=== PATIENT | male | born 1950 | race Caucasian/White ===

== ENCOUNTER 2018-04-05 01:36 | Inpatient (IN) | payer MEDICARE ==
[~2018-04-05] VITALS: Ht 172.7 cm; Wt 126.6 kg
[2018-04-05] MEDS ORDERED: FUROSEMIDE 40MG/4ML VIAL IV ONE (02:15)
[2018-04-05 02:54] LABS: CHLORIDE 78 mEq/L (98-107)
[2018-04-05 02:58] LABS: ETHANOL BLOOD < 10 mg/dL; INR 1.1; PROTHROMBIN TIME 10.8 sec (9.1-11.1)
[2018-04-05 03:24] LABS: HEMATOCRIT. 29.4 % (42.0-52.0); HEMOGLOBIN. 10.6 g/dL (14.0-18.0); MEAN CORPUSCULAR HEMOGLOBIN 31.8 pg (28.0-32.0); MEAN CORPUSCULAR VOLUME 88.3 fL (80.0-94.0); MEAN PLATELET VOLUME 8.5 fl (7.4-10.4); PLATELET 162 x1000/uL (130-400); RED BLOOD CELL COUNT 3.33 mill/uL (4.7-6.1); RED CELL DISTRIBUTION WIDTH 14.4 % (11.6-14.6)
[2018-04-05] MEDS ORDERED: METRONIDAZOLE 500 MG PREMIX 100 ML IV ONE (04:00)
[2018-04-05] MEDS ORDERED: PIPERACILLIN/TAZ 3.375G PREMIX 50 ML IV ONE (04:00)
[2018-04-05 04:38] LABS: METHADONE URINE SCREEN NEGATIVE (NEGATIVE)
[2018-04-05 04:39] LABS: *AMPHETAMINES SCREEN URINE NEGATIVE (NEGATIVE); *BARBITURATES SCREEN URINE NEGATIVE (NEGATIVE); *BENZODIAZEPINES SCREEN URINE NEGATIVE (NEGATIVE); *COCAINE SCREEN URINE NEGATIVE (NEGATIVE); CANNABINOID URINE SCREEN NEGATIVE (NEGATIVE); OPIATES URINE SCREEN NEGATIVE (NEGATIVE); PHENCYCLIDINE URINE SCREEN NEGATIVE (NEGATIVE)
[2018-04-05] MEDS ORDERED: IBUPROFEN 800MG TABLET PO ONE (05:30)
[2018-04-05 06:45] LABS: PLATELET ESTIMATE NORMAL
[2018-04-05] MEDS ORDERED: SODIUM CHLORIDE 0.9% 1,000 ML IV SCH (09:04)
[2018-04-05] MEDS ORDERED: ACETAMINOPHEN 325MG TABLET PO PRN (09:15)
[2018-04-05] MEDS ORDERED: LEVOFLOXACIN 500MG PREMIX 100 ML IV SCH (09:15)
[2018-04-05] MEDS ORDERED: IPRATROPIUM/ALBUTEROL 0.5-3(2.5)MG/3ML NEB INH PRN (09:15)
[2018-04-05] MEDS ORDERED: ONDANSETRON HCL 4MG/2ML INJ IV PRN (09:15)
[2018-04-05] MEDS ORDERED: DEXTROSE 50% WATER 50ML SYRINGE IV PRN (09:15)
[2018-04-05] MEDS ORDERED: MORPHINE SULFATE 2 MG/ML CPJ (NOT FOR IM USE) IV PRN (09:15)
[2018-04-05] MEDS ORDERED: TRAMADOL 50MG TABLET PO PRN (09:15)
[2018-04-05] MEDS ORDERED: GUAIFENESIN 200MG/10ML SUGAR FREE UDC PO PRN (09:15)
[2018-04-05] MEDS ORDERED: NITROGLYCERIN 0.4MG TABLET SL SL PRN (09:15)
[2018-04-05] MEDS ORDERED: NA PHOS,M-B/NA PHOS,DI-BA ENEMA 118ML PR PRN (09:15)
[2018-04-05] MEDS ORDERED: MAGNESIUM/ALUMINUM HYDROXIDE/SIMETHICONE 30ML UDC PO PRN (09:15)
[2018-04-05 12:24] LABS: PHOSPHORUS 2.4 mg/dL (2.5-4.9)
[2018-04-05 17:41] LABS: INR 1.1
[2018-04-05 17:55] LABS: CREATINE KINASE 312 IU/L (39-308)
[2018-04-05 17:56] LABS: CREATINE KINASE MB FRACTION 2.2 ng/mL (0.5-3.6)
[2018-04-05 18:23] VITALS: BP 180/87
[2018-04-05 18:30] VITALS: BP 180/87
[2018-04-05 20:00] VITALS: BP 161/102
[2018-04-05] MEDS ORDERED: MORPHINE SULFATE 10MG/5ML ORAL SOLN UDC PO PRN (20:15)
[2018-04-05] MEDS: AMLODIPINE 2.5MG TABLET PO SCH (20:54)
[2018-04-05] MEDS: TACROLIMUS 1MG CAPSULE PO SCH (20:54)
[2018-04-05] MEDS: FAMOTIDINE 20MG TABLET PO SCH (20:55)
[2018-04-05] MEDS: CARVEDILOL 3.125 MG TABLET PO SCH (20:55)
[2018-04-05] MEDS: BLOOD SUGAR DIAGNOSTIC STRIP TEST SCH (20:58)
[2018-04-05] MEDS: INSULIN LISPRO 100 UNITS/ML SUBCUT SCH (20:59)
[2018-04-05] MEDS ORDERED: LEVOFLOXACIN 500MG PREMIX 100 ML IV NR (21:00)
[2018-04-05] MEDS: ENOXAPARIN 40MG/0.4ML SYR SUBCUT SCH (21:13)
[2018-04-05] MEDS: ZOLPIDEM TARTRATE 5MG TABLET PO PRN (21:43)
[2018-04-05] MEDS ORDERED: CEFTRIAXONE 1 G PREMIX 50 ML IV SCH (22:00)
[2018-04-06] VITALS (9 sets, daily range): BP systolic 120–193; BP diastolic 71–103
[2018-04-06] MEDS ORDERED: SERT-112 PO (01:17)
[2018-04-06] MEDS ORDERED: MONT10TA24 PO (01:17)
[2018-04-06] MEDS ORDERED: LISI10TA5 PO (01:17)
[2018-04-06] MEDS ORDERED: AMLO10TA80 PO (01:17)
[2018-04-06] MEDS ORDERED: HYDR25TA PO (01:17)
[2018-04-06] MEDS: CLONIDINE 0.1MG TABLET PO PRN ×3 (04:17→18:40)
[2018-04-06] MEDS: BLOOD SUGAR DIAGNOSTIC STRIP TEST SCH ×4 (06:16→21:51)
[2018-04-06] MEDS: INSULIN LISPRO 100 UNITS/ML SUBCUT SCH ×4 (06:17→21:00)
[2018-04-06 08:43] LABS: CHLORIDE 76 mEq/L (98-107)
[2018-04-06] MEDS ORDERED: CEFTRIAXONE 1 G PREMIX 50 ML IV SCH ×2 (09:00→20:00)
[2018-04-06 09:01] LABS: CREATINE KINASE 188 IU/L (39-308)
[2018-04-06 09:04] LABS: CREATINE KINASE MB FRACTION 1.8 ng/mL (0.5-3.6)
[2018-04-06 09:48] LABS: HEMATOCRIT. 25.8 % (42.0-52.0); HEMOGLOBIN. 9.4 g/dL (14.0-18.0); MEAN CORPUSCULAR VOLUME 87.9 fL (80.0-94.0); MEAN PLATELET VOLUME 8.5 fl (7.4-10.4); PLATELET 148 x1000/uL (130-400); RED BLOOD CELL COUNT 2.94 mill/uL (4.7-6.1); RED CELL DISTRIBUTION WIDTH 14.5 % (11.6-14.6)
[2018-04-06] MEDS: CARVEDILOL 3.125 MG TABLET PO SCH (10:14)
[2018-04-06] MEDS: TACROLIMUS 1MG CAPSULE PO SCH ×2 (10:14→21:02)
[2018-04-06] MEDS: AMLODIPINE 2.5MG TABLET PO SCH (10:17)
[2018-04-06] MEDS ORDERED: MAGNESIUM 2 G PREMIX 50 ML IV SCH (11:30)
[2018-04-06] MEDS ORDERED: SODIUM CHLORIDE 3% 200 ML IV ONE (11:30)
[2018-04-06 13:36] LABS: PLATELET ESTIMATE NORMAL
[2018-04-06] MEDS: HYDRALAZINE HCL 50MG TABLET PO SCH ×2 (14:49→21:48)
[2018-04-06 20:35] LABS: CLARITY URINE CLEAR (CLEAR); COLOR URINE YELLOW (YELLOW); KETONES URINE NEGATIVE (NEGATIVE); LEUKOCYTE ESTERASE URINE NEGATIVE (NEGATIVE); NITRITE URINE NEGATIVE (NEGATIVE); OCCULT BLOOD URINE 1+ (NEGATIVE); PH URINE 5.5 (4.5-8.0); PROTEIN URINE 3+ (NEGATIVE); SPECIFIC GRAVITY URINE 1.012 (1.005-1.030); UROBILINOGEN URINE 0.2 E.U./dL (0.2-1.0)
[2018-04-06] MEDS ORDERED: HYDRALAZINE HCL 50MG TABLET PO SCH (21:00)
[2018-04-06] MEDS ORDERED: LEVOFLOXACIN 250MG PREMIX 50 ML IV SCH (21:00)
[2018-04-06] MEDS: FUROSEMIDE 20MG/2ML VIAL IVP SCH (21:02)
[2018-04-06] MEDS: FAMOTIDINE 20MG TABLET PO SCH (21:02)
[2018-04-06] MEDS: AMLODIPINE 5MG TABLET PO SCH (21:03)
[2018-04-06] MEDS: CARVEDILOL 6.25 MG TABLET PO SCH (21:03)
[2018-04-06] MEDS: ENOXAPARIN 40MG/0.4ML SYR SUBCUT SCH (21:04)
[2018-04-06] MEDS: ZOLPIDEM TARTRATE 5MG TABLET PO PRN (22:09)
[2018-04-07] VITALS: BP 137/77
[2018-04-07 05:20] VITALS: BP 179/87
[2018-04-07] MEDS: HYDRALAZINE HCL 50MG TABLET PO SCH ×2 (05:30→14:00)
[2018-04-07] MEDS: INSULIN LISPRO 100 UNITS/ML SUBCUT SCH ×2 (06:26→12:40)
[2018-04-07] MEDS: BLOOD SUGAR DIAGNOSTIC STRIP TEST SCH ×2 (06:26→11:55)
[2018-04-07 08:04] VITALS: BP 135/71
[2018-04-07] MEDS: AMLODIPINE 5MG TABLET PO SCH (09:11)
[2018-04-07] MEDS: FUROSEMIDE 20MG/2ML VIAL IVP SCH (09:12)
[2018-04-07] MEDS: CARVEDILOL 6.25 MG TABLET PO SCH (09:12)
[2018-04-07] MEDS: TACROLIMUS 1MG CAPSULE PO SCH (09:12)
[2018-04-07 12:00] VITALS: BP 146/86
[2018-04-07 13:31] LABS: HEMATOCRIT. 26.6 % (42.0-52.0); HEMOGLOBIN. 9.6 g/dL (14.0-18.0); MEAN CORPUSCULAR HEMOGLOBIN 31.9 pg (28.0-32.0); MEAN CORPUSCULAR VOLUME 88.8 fL (80.0-94.0); MEAN PLATELET VOLUME 8.2 fl (7.4-10.4); PLATELET 174 x1000/uL (130-400); RED CELL DISTRIBUTION WIDTH 14.4 % (11.6-14.6)
[2018-04-07 13:35] LABS: CHLORIDE 80 mEq/L (98-107)
[2018-04-07 13:45] LABS: PHOSPHORUS 4.5 mg/dL (2.5-4.9); TOTAL IRON BINDING CAPACITY 125 ug/dL (250-450)
[2018-04-07 14:07] LABS: VITAMIN B12 SERUM 1591 pg/mL (211-911)
[2018-04-07 14:18] LABS: PLATELET ESTIMATE NORMAL
[2018-04-07] MEDS ORDERED: SODIUM CHLORIDE 3% 500ML IV SOLN IV ONE (14:30)
[2018-04-07] MEDS ORDERED: POTASSIUM CHLORIDE 20MEQ TABLET SR PO NR (14:30)
[2018-04-07] MEDS ORDERED: SODIUM CHLORIDE 3% 300 ML IV NR (15:30)
[2018-04-07] MEDS ORDERED: SODIUM CHLORIDE 0.9% 300 ML IV NR (15:30)
[2018-04-07 15:41] VITALS: BP 146/56
[2018-04-07 16:00] VITALS: BP 159/86
== END 2018-04-07 18:35 | disposition short-term general hospital (02) | DRG 682 ==
LOC: ER 01:36 → EDBEDREQTM 04:00 → EDBEDREQ 04:00 → SUPCPDRO 09:19 → ENRESERV 16:31 → 8WST 19:21
PROVIDERS: ADMIT Internal Medicine; ATTEND Internal Medicine
DX: N17.0 Acute kidney failure with tubular necrosis (principal); J96.00 Acute respiratory failure, unspecified whether with hypoxia or hypercapnia; E43 Unspecified severe protein-calorie malnutrition; I50.33 Acute on chronic diastolic (congestive) heart failure; E87.1 Hypo-osmolality and hyponatremia; Z94.4 Liver transplant status; I42.9 Cardiomyopathy, unspecified; Z68.41 Body mass index [BMI] 40.0-44.9, adult; T86.42 Liver transplant failure; E83.51 Hypocalcemia; E66.9 Obesity, unspecified; E83.42 Hypomagnesemia; I11.0 Hypertensive heart disease with heart failure; D64.9 Anemia, unspecified; R79.1 Abnormal coagulation profile; D72.829 Elevated white blood cell count, unspecified; Y83.0 Surgical operation with transplant of whole organ as the cause of abnormal reaction of the patient, or of later complication, without mention of misadventure at the time of the procedure; Y92.89 Other specified places as the place of occurrence of the external cause
CPT/HCPCS: 36415; 71045; 74176; 80048; 80197; 80305; 82140; 82550; 82553; 82570; 82607; 82962; 83036; 83540; 83550; 83605; 83735; 83880; 83935; 84100; 84156; 84300; 84439; 84443; 84484; 85044; 85379; 93005; 93306; 93970; 96365; 96366; 96367; 96375; 97116; 97162; 97166; 99291; A6261; G0482; J0696; J1650; J1940; J1956; J2543; J3475; J3490; J7040; J7507; J7620

== ENCOUNTER 2019-03-29 09:50 | Inpatient (IN) | payer MEDICARE, MEDICAID ==
[~2019-03-29] VITALS: Ht 172.7 cm; Wt 109.8 kg
[~2019-03-29 09:50] MED LIST: AMLO10TA80 PO; HYDR25TA PO; LISI10TA5 PO; MONT10TA24 PO; SERT-112 PO
[2019-03-29 10:31] LABS: BG BASE EXCESS 0.2 mmol/L (-2.0-2.0); BG CARBOXYHEMOGLOBIN 3.6 % (0.5-1.5); BG DEOXYHEMOGLOBIN 5.9 % (0.0-5.0); BG FRACTION INSPIRED OXYGEN 21; BG HCO3 ACT 23.6 mmol/L (22.0-26.0); BG METHEMOGLOBIN 0.1 % (0.0-1.5); BG OXYGEN SATURATION 93.9 % (92.0-98.5); BG OXYHEMOGLOBIN 90.4 % (94.0-97.0); BG PCO2 33.8 mmHg (35.0-45.0); BG PH 7.462 (7.350-7.450); BG SAMPLE SITE RIGHT RADIAL; BG TOTAL HEMOGLOBIN 10.1 g/dL (12.0-18.0); BG VENT MODE ROOM AIR
[2019-03-29 10:36] LABS: BASOPHILS % 0.9 % (0.0-2.0); EOSINOPHILS % 0.4 % (0.0-5.0); HEMATOCRIT. 26.5 % (42.0-52.0); HEMOGLOBIN. 9.6 g/dL (14.0-18.0); LYMPHOCYTES % 16.7 % (20.0-50.0); MEAN CORPUSCULAR HEMOGLOBIN 31.6 pg (28.0-32.0); MEAN CORPUSCULAR VOLUME 87.6 fL (80.0-94.0); MONOCYTES % 9.4 % (2.0-8.0); NEUTROPHILS % 72.6 % (40.0-76.0); PLATELET 125 x1000/uL (130-400); RED BLOOD CELL COUNT 3.03 mill/uL (4.7-6.1); RED CELL DISTRIBUTION WIDTH 16.2 % (11.6-14.6)
[2019-03-29 10:41] LABS: CHLORIDE 82 mEq/L (98-107)
[2019-03-29] MEDS ORDERED: IBUPROFEN 600MG TABLET PO ONE (11:30)
[2019-03-29] MEDS ORDERED: HYDRALAZINE 20MG/ML VIAL IV ONE ×2 (12:30→13:15)
[2019-03-29] MEDS ORDERED: LORAZEPAM 1MG TABLET PO ONE (12:45)
[2019-03-29] MEDS ORDERED: ONDANSETRON HCL 4MG/2ML INJ IV PRN (13:30)
[2019-03-29] MEDS ORDERED: MAGNESIUM/ALUMINUM HYDROXIDE/SIMETHICONE 30ML UDC PO PRN (13:30)
[2019-03-29 15:10] LABS: PHOSPHORUS 5.1 mg/dL (2.5-4.9)
[2019-03-29 15:13] LABS: CREATINE KINASE MB FRACTION 2.1 ng/mL (0.5-3.6)
[2019-03-29] MEDS ORDERED: LORAZEPAM 2MG/ML CPJ IV NR (16:35)
[2019-03-29 18:00] VITALS: BP 183/90
[2019-03-29] MEDS ORDERED: FUROSEMIDE 100MG/10ML VIAL IVP NR (18:11)
[2019-03-29 20:00] VITALS: BP 192/95
[2019-03-29 20:55] VITALS: BP 192/95
[2019-03-29] MEDS ORDERED: HYDR50TA55 MT (22:26)
[2019-03-29] MEDS ORDERED: LORA0.5T2 MT (22:26)
[2019-03-29] MEDS ORDERED: DILT300C52 MT (22:26)
[2019-03-29] MEDS ORDERED: APIX2.5T MT (22:26)
[2019-03-29] MEDS ORDERED: BENZ100C86 MT (22:26)
[2019-03-29] MEDS ORDERED: CARV6.2548 MT (22:26)
[2019-03-29] MEDS ORDERED: METO-293 MT (22:26)
[2019-03-29] MEDS ORDERED: TACR0.5C4 MT (22:26)
[2019-03-29 23:25] LABS: CREATINE KINASE MB FRACTION 1.4 ng/mL (0.5-3.6)
[2019-03-29] MEDS: LORAZEPAM 0.5MG TABLET PO PRN (23:36)
[2019-03-30] VITALS (9 sets, daily range): BP systolic 175–210; BP diastolic 83–107
[2019-03-30] MEDS: HYDRALAZINE 20MG/ML VIAL IV PRN ×2 (00:06→12:12)
[2019-03-30] MEDS: IPRATROPIUM/ALBUTEROL 0.5-3(2.5)MG/3ML NEB HHN PRN (02:50)
[2019-03-30] MEDS: ACETAMINOPHEN 325MG TABLET PO PRN ×3 (03:15→21:11)
[2019-03-30] MEDS: CLONIDINE 0.1MG TABLET PO PRN ×3 (04:56→21:10)
[2019-03-30] MEDS: NICOTINE 21MG PATCH TD SCH (08:47)
[2019-03-30] MEDS: TACROLIMUS 1MG CAPSULE PO SCH (09:16)
[2019-03-30 12:04] LABS: BASOPHILS % 0.4 % (0.0-2.0); EOSINOPHILS % 0.1 % (0.0-5.0); HEMATOCRIT. 25.4 % (42.0-52.0); LYMPHOCYTES % 13.5 % (20.0-50.0); MEAN CORPUSCULAR HEMOGLOBIN 31.5 pg (28.0-32.0); MEAN CORPUSCULAR VOLUME 89.3 fL (80.0-94.0); MEAN PLATELET VOLUME 7.5 fl (7.4-10.4); MONOCYTES % 13.3 % (2.0-8.0); NEUTROPHILS % 72.7 % (40.0-76.0); PLATELET 122 x1000/uL (130-400); RED BLOOD CELL COUNT 2.84 mill/uL (4.7-6.1); RED CELL DISTRIBUTION WIDTH 16.2 % (11.6-14.6)
[2019-03-30 12:19] LABS: CHLORIDE 95 mEq/L (98-107)
[2019-03-30 12:29] LABS: PHOSPHORUS 4.6 mg/dL (2.5-4.9)
[2019-03-30 12:30] LABS: LDL CHOLESTEROL 60 mg/dL (5-100)
[2019-03-30 12:32] LABS: HDL CHOLESTEROL 71 mg/dL (40-59)
[2019-03-30] MEDS: NIFEDIPINE XL 30MG TAB PO SCH ×2 (13:15→21:09)
[2019-03-30] MEDS: LORAZEPAM 2MG/ML CPJ IV PRN (13:37)
[2019-03-30] MEDS ORDERED: CLONIDINE 0.2MG TABLET PO SCH (16:00)
[2019-03-30] MEDS ORDERED: TACROLIMUS 0.5 MG CAPSULE PO SCH (21:00)
[2019-03-30] MEDS: LORAZEPAM 0.5MG TABLET PO PRN (21:31)
[2019-03-31] MEDS: IPRATROPIUM/ALBUTEROL 0.5-3(2.5)MG/3ML NEB HHN PRN (01:22)
[2019-03-31 02:51] VITALS: BP 144/79
[2019-03-31] MEDS: LORAZEPAM 2MG/ML CPJ IV PRN (02:52)
[2019-03-31] MEDS: CLONIDINE 0.1MG TABLET PO PRN (04:47)
[2019-03-31 06:52] LABS: BASOPHILS % 0.7 % (0.0-2.0); EOSINOPHILS % 1.1 % (0.0-5.0); LYMPHOCYTES % 19.4 % (20.0-50.0); MEAN CORPUSCULAR HEMOGLOBIN 31.5 pg (28.0-32.0); MEAN PLATELET VOLUME 7.7 fl (7.4-10.4); MONOCYTES % 14.4 % (2.0-8.0); NEUTROPHILS % 64.4 % (40.0-76.0); PLATELET 86 x1000/uL (130-400); RED BLOOD CELL COUNT 2.21 mill/uL (4.7-6.1); RED CELL DISTRIBUTION WIDTH 16.4 % (11.6-14.6)
[2019-03-31 08:00] VITALS: BP 169/85
[2019-03-31 08:06] LABS: HEMATOCRIT. 19.9 % (42.0-52.0)
[2019-03-31] MEDS: NICOTINE 21MG PATCH TD SCH (09:03)
[2019-03-31] MEDS: NIFEDIPINE XL 30MG TAB PO SCH (09:03)
[2019-03-31] MEDS: TACROLIMUS 1MG CAPSULE PO SCH (09:12)
== END 2019-03-31 11:20 | disposition left against medical advice (07) | DRG 981 ==
LOC: ER 09:50 → 6WST 13:16 → EDBEDREQ 13:23 → ENRESERV 16:43
PROVIDERS: ADMIT Internal Medicine; ATTEND Internal Medicine
PROC: 0KBS0ZZ Excision of Right Lower Leg Muscle, Open Approach (ICD-10-PCS; principal; 2019-03-29)
PROC: 5A1D70Z Performance of Urinary Filtration, Intermittent, Less than 6 Hours Per Day (ICD-10-PCS; 2019-03-29)
DX: I16.1 Hypertensive emergency (principal); J96.90 Respiratory failure, unspecified, unspecified whether with hypoxia or hypercapnia; N18.6 End stage renal disease; E87.1 Hypo-osmolality and hyponatremia; Z94.4 Liver transplant status; E46 Unspecified protein-calorie malnutrition; L97.919 Non-pressure chronic ulcer of unspecified part of right lower leg with unspecified severity; I12.0 Hypertensive chronic kidney disease with stage 5 chronic kidney disease or end stage renal disease; D63.8 Anemia in other chronic diseases classified elsewhere; D69.6 Thrombocytopenia, unspecified; E66.01 Morbid (severe) obesity due to excess calories; Z53.29 Procedure and treatment not carried out because of patient's decision for other reasons; E83.39 Other disorders of phosphorus metabolism; E83.51 Hypocalcemia; F17.200 Nicotine dependence, unspecified, uncomplicated; F41.9 Anxiety disorder, unspecified; F10.10 Alcohol abuse, uncomplicated; K74.60 Unspecified cirrhosis of liver; W18.30XA Fall on same level, unspecified, initial encounter; Y93.89 Activity, other specified; Y92.89 Other specified places as the place of occurrence of the external cause; Y99.8 Other external cause status; Z71.6 Tobacco abuse counseling; Z82.49 Family history of ischemic heart disease and other diseases of the circulatory system; Z99.2 Dependence on renal dialysis; Z68.36 Body mass index [BMI] 36.0-36.9, adult; Z79.899 Other long term (current) drug therapy
CPT/HCPCS: 36415; 36600; 71045; 80048; 80061; 82375; 82550; 82553; 82805; 83735; 83880; 84100; 84484; 93005; 93971; 94640; 99291; J0360; J1940; J2060; J7507; J7620

== ENCOUNTER 2019-04-13 02:10 | Inpatient (IN) | payer MEDICARE, OTHER ==
[~2019-04-13] VITALS: Ht 177.8 cm; Wt 50.8 kg
[~2019-04-13 02:10] MED LIST changes: -AMLO10TA80 PO; +APIX2.5T MT; +BENZ100C86 MT; +CARV6.2548 MT; +DILT300C52 MT; -HYDR25TA PO; +HYDR50TA55 MT; -LISI10TA5 PO; +LORA0.5T2 MT; +METO-293 MT; -MONT10TA24 PO; -SERT-112 PO; +TACR0.5C4 MT
[2019-04-13] MEDS ORDERED: FUROSEMIDE 40MG/4ML VIAL IV ONE (02:30)
[2019-04-13 02:48] LABS: BASOPHILS % 0.9 % (0.0-2.0); EOSINOPHILS % 2.3 % (0.0-5.0); HEMATOCRIT. 25.5 % (42.0-52.0); LYMPHOCYTES % 15.2 % (20.0-50.0); MEAN CORPUSCULAR HEMOGLOBIN 31.1 pg (28.0-32.0); MEAN CORPUSCULAR VOLUME 88.3 fL (80.0-94.0); NEUTROPHILS % 72.6 % (40.0-76.0); PLATELET 157 x1000/uL (130-400); RED BLOOD CELL COUNT 2.89 mill/uL (4.7-6.1); RED CELL DISTRIBUTION WIDTH 15.7 % (11.6-14.6)
[2019-04-13 02:53] LABS: CHLORIDE 87 mEq/L (98-107)
[2019-04-13] MEDS ORDERED: ONDANSETRON HCL 4MG/2ML INJ IV ONE (03:00)
[2019-04-13] MEDS ORDERED: FUROSEMIDE 40MG/4ML VIAL IVP SCH ×2 (03:00→07:30)
[2019-04-13] MEDS ORDERED: LABETALOL 5MG/ML SYR 20 MG/4 ML SYRINGE IV ONE (05:00)
[2019-04-13] MEDS ORDERED: NITROGLYCERIN 0.4MG TABLET SL SL PRN (06:00)
[2019-04-13] MEDS ORDERED: TRAMADOL 50MG TABLET PO PRN (06:00)
[2019-04-13] MEDS ORDERED: ENOXAPARIN 40MG/0.4ML SYR SUBCUT SCH (06:00)
[2019-04-13] MEDS ORDERED: DOCUSATE SODIUM 100MG CAPSULE PO PRN (06:00)
[2019-04-13] MEDS ORDERED: DIPHENHYDRAMINE 50MG/ML VIAL IV PRN (06:00)
[2019-04-13] MEDS ORDERED: GUAIFENESIN 200MG/10ML SUGAR FREE UDC PO PRN (06:00)
[2019-04-13] MEDS ORDERED: MAGNESIUM/ALUMINUM HYDROXIDE/SIMETHICONE 30ML UDC PO PRN (06:00)
[2019-04-13] MEDS ORDERED: CLONIDINE 0.1MG TABLET PO PRN (06:00)
[2019-04-13] MEDS ORDERED: IPRATROPIUM/ALBUTEROL 0.5-3(2.5)MG/3ML NEB NEB PRN (06:00)
[2019-04-13] MEDS ORDERED: ACETAMINOPHEN 325MG TABLET PO PRN (06:00)
[2019-04-13] MEDS ORDERED: ONDANSETRON HCL 4MG/2ML INJ IV PRN (06:00)
[2019-04-13] MEDS ORDERED: CARVEDILOL 3.125 MG TABLET PO SCH (07:30)
[2019-04-13 07:47] LABS: FOLIC ACID (FOLATE) SERUM > 20.00 ng/mL (>5.38)
[2019-04-13 07:53] LABS: VITAMIN B12 SERUM 920 pg/mL (211-911)
[2019-04-13 08:00] VITALS: BP 182/80
[2019-04-13 08:17] VITALS: BP 211/109
[2019-04-13] MEDS: HYDRALAZINE HCL 50MG TABLET PO SCH ×3 (08:18→22:06)
[2019-04-13] MEDS: APIXABAN 2.5 MG TABLET PO SCH ×2 (08:18→17:47)
[2019-04-13] MEDS: SEVELAMER CARBONATE 800 MG TABLET PO SCH ×3 (08:19→17:48)
[2019-04-13] MEDS: DILTIAZEM HCL 60MG TABLET PO SCH ×3 (08:19→17:58)
[2019-04-13] MEDS: FOLIC ACID/VITAMIN B COMP W-C TABLET PO SCH (08:19)
[2019-04-13] MEDS: ASPIRIN 325MG EC TABLET PO SCH (08:20)
[2019-04-13] MEDS: FAMOTIDINE 20MG TABLET PO SCH (08:20)
[2019-04-13] MEDS ORDERED: LISINOPRIL 20MG TABLET PO SCH (09:00)
[2019-04-13] MEDS ORDERED: FUROSEMIDE 40MG/4ML VIAL IVP NR (10:00)
[2019-04-13] MEDS: TACROLIMUS 0.5 MG CAPSULE PO SCH ×2 (10:02→22:04)
[2019-04-13] MEDS: MINOXIDIL 2.5MG TABLET PO SCH ×2 (10:03→22:04)
[2019-04-13 10:54] LABS: LDL CHOLESTEROL 78 mg/dL (5-100); TOTAL IRON BINDING CAPACITY 220 ug/dL (250-450)
[2019-04-13 10:55] LABS: CREATINE KINASE 29 IU/L (39-308)
[2019-04-13 10:56] LABS: HDL CHOLESTEROL 46 mg/dL (40-59)
[2019-04-13 10:59] LABS: CREATINE KINASE MB FRACTION < 1.0 ng/mL (0.5-3.6)
[2019-04-13 12:00] VITALS: BP 177/82
[2019-04-13 16:00] VITALS: BP 138/64
[2019-04-13 17:52] LABS: CREATINE KINASE 31 IU/L (39-308)
[2019-04-13 17:53] LABS: CREATINE KINASE MB FRACTION < 1.0 ng/mL (0.5-3.6)
[2019-04-13 20:00] VITALS: BP 146/70
[2019-04-13] MEDS ORDERED: MINOXIDIL 2.5MG TABLET PO SCH (21:00)
[2019-04-13] MEDS: CARVEDILOL 12.5MG TABLET PO SCH (22:03)
[2019-04-13] MEDS: EPOETIN ALFA 10000UNITS/ML VIAL SUBCUT SCH (22:05)
[2019-04-13] MEDS: CLONIDINE 0.1MG TABLET PO SCH (22:06)
[2019-04-13] MEDS: LORAZEPAM 0.5MG TABLET PO PRN (22:32)
[2019-04-13] MEDS: ZOLPIDEM TARTRATE 5MG TABLET PO PRN (22:32)
[2019-04-13 22:57] VITALS: BP 188/94
[2019-04-14 00:42] VITALS: BP 134/64
[2019-04-14] MEDS: DILTIAZEM HCL 60MG TABLET PO SCH ×5 (01:26→23:55)
[2019-04-14 04:00] VITALS: BP 158/56
[2019-04-14] MEDS: HYDRALAZINE HCL 50MG TABLET PO SCH (05:54)
[2019-04-14] MEDS: APIXABAN 2.5 MG TABLET PO SCH ×2 (05:55→21:10)
[2019-04-14] MEDS: CLONIDINE 0.1MG TABLET PO SCH ×3 (05:55→22:26)
[2019-04-14 07:21] LABS: BASOPHILS % 1.1 % (0.0-2.0); EOSINOPHILS % 1.8 % (0.0-5.0); HEMATOCRIT. 23.6 % (42.0-52.0); HEMOGLOBIN. 8.2 g/dL (14.0-18.0); LYMPHOCYTES % 18.1 % (20.0-50.0); MEAN CORPUSCULAR HEMOGLOBIN 31.2 pg (28.0-32.0); MEAN CORPUSCULAR VOLUME 90.4 fL (80.0-94.0); MEAN PLATELET VOLUME 8.5 fl (7.4-10.4); MONOCYTES % 13.3 % (2.0-8.0); NEUTROPHILS % 65.7 % (40.0-76.0); PLATELET 147 x1000/uL (130-400); RED BLOOD CELL COUNT 2.61 mill/uL (4.7-6.1); RED CELL DISTRIBUTION WIDTH 15.9 % (11.6-14.6)
[2019-04-14 08:00] VITALS: BP 87/45
[2019-04-14 08:23] LABS: PHOSPHORUS 4.2 mg/dL (2.5-4.9)
[2019-04-14] MEDS: LOSARTAN POTASSIUM 25 MG TABLET PO SCH (09:00)
[2019-04-14] MEDS: CARVEDILOL 12.5MG TABLET PO SCH ×2 (09:00→21:10)
[2019-04-14] MEDS: FUROSEMIDE 100MG/10ML VIAL IVP SCH (10:07)
[2019-04-14] MEDS: ASPIRIN 325MG EC TABLET PO SCH (10:08)
[2019-04-14] MEDS: FOLIC ACID/VITAMIN B COMP W-C TABLET PO SCH (10:08)
[2019-04-14] MEDS: TACROLIMUS 0.5 MG CAPSULE PO SCH ×2 (10:08→21:09)
[2019-04-14] MEDS: SEVELAMER CARBONATE 800 MG TABLET PO SCH ×3 (10:08→21:09)
[2019-04-14] MEDS: MINOXIDIL 2.5MG TABLET PO SCH ×2 (10:09→21:10)
[2019-04-14] MEDS: FAMOTIDINE 20MG TABLET PO SCH (10:18)
[2019-04-14 12:00] VITALS: BP 122/69
[2019-04-14] MEDS: LORAZEPAM 0.5MG TABLET PO PRN ×2 (12:30→23:55)
[2019-04-14 16:00] VITALS: BP 133/71
[2019-04-14 20:00] VITALS: BP 129/68
[2019-04-14] MEDS: ZOLPIDEM TARTRATE 5MG TABLET PO PRN (22:25)
[2019-04-15] VITALS: BP 157/73
[2019-04-15 04:00] VITALS: BP 141/71
[2019-04-15] MEDS: CLONIDINE 0.1MG TABLET PO SCH ×3 (05:37→21:19)
[2019-04-15] MEDS: APIXABAN 2.5 MG TABLET PO SCH ×2 (05:37→18:31)
[2019-04-15] MEDS: DILTIAZEM HCL 60MG TABLET PO SCH ×4 (05:38→18:33)
[2019-04-15 07:08] LABS: BASOPHILS % 1.2 % (0.0-2.0); EOSINOPHILS % 2.6 % (0.0-5.0); HEMATOCRIT. 21.9 % (42.0-52.0); HEMOGLOBIN. 7.6 g/dL (14.0-18.0); LYMPHOCYTES % 24.9 % (20.0-50.0); MEAN CORPUSCULAR HEMOGLOBIN 31.4 pg (28.0-32.0); MEAN PLATELET VOLUME 8.6 fl (7.4-10.4); MONOCYTES % 14.2 % (2.0-8.0); NEUTROPHILS % 57.1 % (40.0-76.0); PLATELET 117 x1000/uL (130-400); RED BLOOD CELL COUNT 2.41 mill/uL (4.7-6.1); RED CELL DISTRIBUTION WIDTH 15.8 % (11.6-14.6)
[2019-04-15 07:09] LABS: PHOSPHORUS 3.2 mg/dL (2.5-4.9)
[2019-04-15 08:00] VITALS: BP 139/73
[2019-04-15] MEDS: TACROLIMUS 0.5 MG CAPSULE PO SCH ×2 (09:19→21:19)
[2019-04-15] MEDS: LOSARTAN POTASSIUM 25 MG TABLET PO SCH (09:19)
[2019-04-15] MEDS: FOLIC ACID/VITAMIN B COMP W-C TABLET PO SCH (09:19)
[2019-04-15] MEDS: SEVELAMER CARBONATE 800 MG TABLET PO SCH ×4 (09:19→18:32)
[2019-04-15] MEDS: FAMOTIDINE 20MG TABLET PO SCH (09:19)
[2019-04-15] MEDS: FUROSEMIDE 100MG/10ML VIAL IVP SCH (09:19)
[2019-04-15] MEDS: CARVEDILOL 12.5MG TABLET PO SCH ×2 (09:20→21:19)
[2019-04-15] MEDS: MINOXIDIL 2.5MG TABLET PO SCH ×2 (09:20→21:18)
[2019-04-15] MEDS: ASPIRIN 325MG EC TABLET PO SCH (09:20)
[2019-04-15 12:00] VITALS: BP 127/71
[2019-04-15 16:00] VITALS: BP 150/68
[2019-04-15] MEDS: LORAZEPAM 0.5MG TABLET PO PRN (18:31)
[2019-04-15 20:00] VITALS: BP_SYST 157; BP_SYST 169; BP_DIAS 58; BP_DIAS 77
[2019-04-15] MEDS: ZOLPIDEM TARTRATE 5MG TABLET PO PRN (21:18)
[2019-04-15] MEDS: EPOETIN ALFA 10000UNITS/ML VIAL SUBCUT SCH (21:21)
[2019-04-16] VITALS: BP 141/66
[2019-04-16] MEDS: DILTIAZEM HCL 60MG TABLET PO SCH ×3 (00:47→12:04)
[2019-04-16 04:00] VITALS: BP 151/80
[2019-04-16] MEDS: CLONIDINE 0.1MG TABLET PO SCH ×2 (05:29→14:01)
[2019-04-16] MEDS: APIXABAN 2.5 MG TABLET PO SCH (05:29)
[2019-04-16] MEDS: LORAZEPAM 0.5MG TABLET PO PRN (05:45)
[2019-04-16 06:38] LABS: BASOPHILS % 1.2 % (0.0-2.0); EOSINOPHILS % 3.7 % (0.0-5.0); HEMATOCRIT. 22.3 % (42.0-52.0); HEMOGLOBIN. 7.5 g/dL (14.0-18.0); LYMPHOCYTES % 21.1 % (20.0-50.0); MEAN CORPUSCULAR HEMOGLOBIN 30.9 pg (28.0-32.0); MEAN CORPUSCULAR VOLUME 91.8 fL (80.0-94.0); MEAN PLATELET VOLUME 8.4 fl (7.4-10.4); PLATELET 118 x1000/uL (130-400); RED BLOOD CELL COUNT 2.43 mill/uL (4.7-6.1); RED CELL DISTRIBUTION WIDTH 15.9 % (11.6-14.6)
[2019-04-16 07:11] LABS: PHOSPHORUS 3.2 mg/dL (2.5-4.9)
[2019-04-16 08:00] VITALS: BP 139/53
[2019-04-16] MEDS: SEVELAMER CARBONATE 800 MG TABLET PO SCH ×2 (08:15→14:01)
[2019-04-16] MEDS: TACROLIMUS 0.5 MG CAPSULE PO SCH (09:10)
[2019-04-16] MEDS: FOLIC ACID/VITAMIN B COMP W-C TABLET PO SCH (09:10)
[2019-04-16] MEDS: FUROSEMIDE 100MG/10ML VIAL IVP SCH (09:10)
[2019-04-16] MEDS: ASPIRIN 325MG EC TABLET PO SCH (09:11)
[2019-04-16] MEDS: LOSARTAN POTASSIUM 25 MG TABLET PO SCH (09:11)
[2019-04-16] MEDS: CARVEDILOL 12.5MG TABLET PO SCH (09:11)
[2019-04-16] MEDS: MINOXIDIL 2.5MG TABLET PO SCH (09:12)
[2019-04-16] MEDS: FAMOTIDINE 20MG TABLET PO SCH (09:26)
[2019-04-16 10:52] VITALS: BP 131/66
[2019-04-16 12:00] VITALS: BP 131/66
== END 2019-04-16 14:05 | disposition home or self-care (01) | DRG 166 ==
LOC: ER 02:29 → 7WST 03:30 → ENRESERV 04:34 → SUPCPDRO 05:56 → 7WST 04-14 15:39
PROVIDERS: ADMIT Internal Medicine; ATTEND Internal Medicine
PROC: 5A1D70Z Performance of Urinary Filtration, Intermittent, Less than 6 Hours Per Day (ICD-10-PCS; 2019-04-13)
PROC: 0JBN0ZZ Excision of Right Lower Leg Subcutaneous Tissue and Fascia, Open Approach (ICD-10-PCS; principal; 2019-04-14)
PROC: 5A1D70Z Performance of Urinary Filtration, Intermittent, Less than 6 Hours Per Day (ICD-10-PCS; 2019-04-14)
PROC: 5A1D70Z Performance of Urinary Filtration, Intermittent, Less than 6 Hours Per Day (ICD-10-PCS; 2019-04-16)
DX: J96.01 Acute respiratory failure with hypoxia (principal); I50.33 Acute on chronic diastolic (congestive) heart failure; N18.6 End stage renal disease; I13.2 Hypertensive heart and chronic kidney disease with heart failure and with stage 5 chronic kidney disease, or end stage renal disease; E44.0 Moderate protein-calorie malnutrition; E87.1 Hypo-osmolality and hyponatremia; L97.919 Non-pressure chronic ulcer of unspecified part of right lower leg with unspecified severity; Z94.4 Liver transplant status; Z68.1 Body mass index [BMI] 19.9 or less, adult; D63.8 Anemia in other chronic diseases classified elsewhere; E66.01 Morbid (severe) obesity due to excess calories; E83.51 Hypocalcemia; F10.10 Alcohol abuse, uncomplicated; F17.210 Nicotine dependence, cigarettes, uncomplicated; F41.9 Anxiety disorder, unspecified; I16.0 Hypertensive urgency; W18.30XA Fall on same level, unspecified, initial encounter; K74.60 Unspecified cirrhosis of liver; Z79.899 Other long term (current) drug therapy; Z99.2 Dependence on renal dialysis; Y93.89 Activity, other specified; Y92.89 Other specified places as the place of occurrence of the external cause; Y99.8 Other external cause status
CPT/HCPCS: 36415; 71045; 80048; 80061; 82550; 82553; 82607; 82746; 83036; 83540; 83550; 83735; 83880; 84100; 84484; 93005; 93970; 99291; J0885; J1200; J1940; J2405; J3490; J7507

== ENCOUNTER 2019-05-04 23:51 | Inpatient (IN) | payer MEDICARE, OTHER ==
[~2019-05-04] VITALS: Ht 177.8 cm; Wt 110.3 kg
[~2019-05-04 23:51] MED LIST changes: +CALC667T6 PO; +CARV12.545 PO; +DOXA4TAB3 MT; +FURO80TA3 PO; +HYDR100T26 MT
[2019-05-05 03:03] LABS: BASOPHILS % 1.1 % (0.0-2.0); EOSINOPHILS % 4.2 % (0.0-5.0); HEMATOCRIT. 27.8 % (42.0-52.0); HEMOGLOBIN. 9.4 g/dL (14.0-18.0); LYMPHOCYTES % 33.4 % (20.0-50.0); MEAN CORPUSCULAR HEMOGLOBIN 30.5 pg (28.0-32.0); MEAN CORPUSCULAR VOLUME 90.2 fL (80.0-94.0); MEAN PLATELET VOLUME 8.5 fl (7.4-10.4); MONOCYTES % 11.3 % (2.0-8.0); PLATELET 102 x1000/uL (130-400); RED BLOOD CELL COUNT 3.08 mill/uL (4.7-6.1); RED CELL DISTRIBUTION WIDTH 14.9 % (11.6-14.6)
[2019-05-05 03:08] LABS: CHLORIDE 92 mEq/L (98-107)
[2019-05-05] MEDS ORDERED: IPRATROPIUM/ALBUTEROL 0.5-3(2.5)MG/3ML NEB HHN PRN (07:30)
[2019-05-05] MEDS ORDERED: DIPHENHYDRAMINE 50MG/ML VIAL IV PRN (07:30)
[2019-05-05] MEDS ORDERED: ONDANSETRON HCL 4MG/2ML INJ IV PRN (07:30)
[2019-05-05 07:41] LABS: PHOSPHORUS 3.4 mg/dL (2.5-4.9)
[2019-05-05] MEDS: CLONIDINE 0.1MG TABLET PO PRN (18:21)
[2019-05-05 22:00] VITALS: BP 174/86
[2019-05-05 22:09] VITALS: BP 174/86
[2019-05-06] VITALS: BP 110/56
[2019-05-06 04:00] VITALS: BP 160/63
[2019-05-06 08:07] LABS: BASOPHILS % 0.8 % (0.0-2.0); EOSINOPHILS % 2.4 % (0.0-5.0); HEMATOCRIT. 28.8 % (42.0-52.0); HEMOGLOBIN. 9.8 g/dL (14.0-18.0); LYMPHOCYTES % 19.2 % (20.0-50.0); MEAN CORPUSCULAR HEMOGLOBIN 30.7 pg (28.0-32.0); MEAN CORPUSCULAR VOLUME 89.9 fL (80.0-94.0); MEAN PLATELET VOLUME 8.7 fl (7.4-10.4); MONOCYTES % 11.6 % (2.0-8.0); PLATELET 108 x1000/uL (130-400); RED CELL DISTRIBUTION WIDTH 14.6 % (11.6-14.6)
[2019-05-06 08:18] VITALS: BP 165/86
[2019-05-06] MEDS: CLONIDINE 0.1MG TABLET PO PRN ×2 (08:22→21:33)
[2019-05-06 09:45] LABS: CHLORIDE 100 mEq/L (98-107)
[2019-05-06 12:24] VITALS: BP 148/67
[2019-05-06 16:24] VITALS: BP 165/52
[2019-05-06] MEDS: ACETAMINOPHEN 325MG TABLET PO PRN (17:33)
[2019-05-06] MEDS: POLYVINYL ALCOHOL OPHTH DROPS 15ML BOTHEYE PRN (17:33)
[2019-05-06 20:00] VITALS: BP 164/68
[2019-05-06] MEDS ORDERED: TRAZODONE HCL 50MG TABLET PO SCH ×2 (21:00)
[2019-05-07] VITALS: BP_SYST 155; BP_SYST 176; BP_DIAS 73; BP_DIAS 82
[2019-05-07] MEDS: ACETAMINOPHEN 325MG TABLET PO PRN (00:05)
[2019-05-07] MEDS: CLONIDINE 0.1MG TABLET PO PRN (06:27)
[2019-05-07 08:30] VITALS: BP 152/71
[2019-05-07] MEDS: POLYVINYL ALCOHOL OPHTH DROPS 15ML BOTHEYE PRN (09:08)
[2019-05-07 09:09] LABS: BASOPHILS % 0.7 % (0.0-2.0); EOSINOPHILS % 2.2 % (0.0-5.0); HEMOGLOBIN. 10.1 g/dL (14.0-18.0); LYMPHOCYTES % 25.1 % (20.0-50.0); MEAN CORPUSCULAR HEMOGLOBIN 30.6 pg (28.0-32.0); MEAN CORPUSCULAR VOLUME 90.6 fL (80.0-94.0); MEAN PLATELET VOLUME 8.8 fl (7.4-10.4); PLATELET 106 x1000/uL (130-400); RED BLOOD CELL COUNT 3.31 mill/uL (4.7-6.1); RED CELL DISTRIBUTION WIDTH 14.6 % (11.6-14.6)
[2019-05-07 12:48] VITALS: BP 172/84
[2019-05-07 13:21] VITALS: BP 172/84
== END 2019-05-07 15:05 | disposition home or self-care (01) | DRG 622 ==
LOC: ER 23:51 → 6WST 05-05 02:59 → EDBEDREQTM 05-05 03:05 → EDBEDREQ 05-05 03:05 → ENRESERV 05-05 19:06
PROVIDERS: ADMIT Internal Medicine; ATTEND Internal Medicine
PROC: 5A1D70Z Performance of Urinary Filtration, Intermittent, Less than 6 Hours Per Day (ICD-10-PCS; 2019-05-05)
PROC: 5A1D70Z Performance of Urinary Filtration, Intermittent, Less than 6 Hours Per Day (ICD-10-PCS; 2019-05-06)
PROC: 0JBL0ZZ Excision of Right Upper Leg Subcutaneous Tissue and Fascia, Open Approach (ICD-10-PCS; principal; 2019-05-07)
DX: E87.70 Fluid overload, unspecified (principal); J96.00 Acute respiratory failure, unspecified whether with hypoxia or hypercapnia; N18.6 End stage renal disease; I50.33 Acute on chronic diastolic (congestive) heart failure; I13.2 Hypertensive heart and chronic kidney disease with heart failure and with stage 5 chronic kidney disease, or end stage renal disease; E46 Unspecified protein-calorie malnutrition; J84.9 Interstitial pulmonary disease, unspecified; L97.919 Non-pressure chronic ulcer of unspecified part of right lower leg with unspecified severity; Z94.4 Liver transplant status; F10.10 Alcohol abuse, uncomplicated; D69.6 Thrombocytopenia, unspecified; E66.01 Morbid (severe) obesity due to excess calories; K74.60 Unspecified cirrhosis of liver; F41.9 Anxiety disorder, unspecified; D63.8 Anemia in other chronic diseases classified elsewhere; Z99.2 Dependence on renal dialysis; Z87.891 Personal history of nicotine dependence; Z91.19 Patient's noncompliance with other medical treatment and regimen; Z68.34 Body mass index [BMI] 34.0-34.9, adult; Z79.899 Other long term (current) drug therapy
CPT/HCPCS: 36415; 71045; 80048; 80053; 83735; 84100; 84443; 84484; 85025; 93005; 93970; 94640; 99285

== ENCOUNTER 2019-05-17 22:34 | Inpatient (IN) | payer MEDICARE, OTHER ==
[~2019-05-17] VITALS: Ht 170.2 cm; Wt 98.4 kg
[2019-05-17] MEDS ORDERED: ALBUTEROL (0.083%) 2.5MG/3ML NEB HHN STA (23:25)
[2019-05-17] MEDS ORDERED: ONDANSETRON HCL 4MG/2ML INJ IV STA (23:25)
[2019-05-17] MEDS ORDERED: MORPHINE SULFATE 4 MG/ML CPJ (NOT FOR IM USE) IV STA (23:25)
[2019-05-17] MEDS ORDERED: LABETALOL 5MG/ML SYR 20 MG/4 ML SYRINGE IV NR (23:30)
[2019-05-17 23:48] LABS: BASOPHILS % 1.2 % (0.0-2.0); EOSINOPHILS % 2.8 % (0.0-5.0); HEMATOCRIT. 32.9 % (42.0-52.0); HEMOGLOBIN. 11.4 g/dL (14.0-18.0); LYMPHOCYTES % 20.8 % (20.0-50.0); MEAN CORPUSCULAR HEMOGLOBIN 30.4 pg (28.0-32.0); MEAN CORPUSCULAR VOLUME 87.8 fL (80.0-94.0); MEAN PLATELET VOLUME 8.1 fl (7.4-10.4); MONOCYTES % 10.6 % (2.0-8.0); NEUTROPHILS % 64.6 % (40.0-76.0); PLATELET 89 x1000/uL (130-400); RED BLOOD CELL COUNT 3.75 mill/uL (4.7-6.1); RED CELL DISTRIBUTION WIDTH 14.9 % (11.6-14.6)
[2019-05-17 23:52] LABS: CHLORIDE 85 mEq/L (98-107)
[2019-05-18] MEDS ORDERED: DIPHENHYDRAMINE 50MG CAPSULE PO ONE (01:45)
[2019-05-18] MEDS ORDERED: ONDANSETRON HCL 4MG/2ML INJ IV PRN (02:30)
[2019-05-18] MEDS ORDERED: HYDRALAZINE 20MG/ML VIAL IV PRN (03:00)
[2019-05-18] MEDS ORDERED: LORAZEPAM 0.5MG TABLET PO PRN (03:45)
[2019-05-18] MEDS ORDERED: CLONIDINE 0.2MG TABLET PO PRN (04:45)
[2019-05-18] MEDS: FUROSEMIDE 40MG/4ML VIAL IVP SCH ×2 (08:00→17:01)
[2019-05-18] MEDS: HYDRALAZINE 20MG/ML VIAL IV PRN (08:00)
[2019-05-18 09:30] VITALS: BP 178/93
[2019-05-18 12:00] VITALS: BP 116/86
[2019-05-18] MEDS ORDERED: APIXABAN 2.5 MG TABLET PO SCH (12:45)
[2019-05-18] MEDS ORDERED: HYDROXYZINE 25MG TABLET PO PRN (12:45)
[2019-05-18 17:04] VITALS: BP 197/90
[2019-05-18] MEDS: METOCLOPRAMIDE HCL 10MG TABLET PO SCH (17:05)
[2019-05-18] MEDS: TACROLIMUS 0.5 MG CAPSULE PO SCH (17:05)
[2019-05-18] MEDS: DILTIAZEM HCL 300MG CAPSULE SR 24HR PO SCH (17:05)
[2019-05-18] MEDS: HYDRALAZINE HCL 100MG TABLET PO SCH ×2 (17:06→17:14)
[2019-05-18] MEDS: DOXAZOSIN MESYLATE 4MG TABLET PO SCH (17:06)
[2019-05-18] MEDS: CARVEDILOL 12.5MG TABLET PO SCH ×2 (17:06→20:38)
[2019-05-18] MEDS: BENZONATATE 100MG CAPSULE PO SCH (17:09)
[2019-05-18 19:20] VITALS: BP 201/100
[2019-05-18] MEDS: LORAZEPAM 0.5MG TABLET PO PRN (22:54)
[2019-05-19] VITALS (7 sets, daily range): BP systolic 153–221; BP diastolic 76–101
[2019-05-19] MEDS: ACETAMINOPHEN 325MG TABLET PO PRN ×2 (00:17→20:32)
[2019-05-19] MEDS: HYDRALAZINE 20MG/ML VIAL IV PRN (00:18)
[2019-05-19] MEDS: FUROSEMIDE 40MG/4ML VIAL IVP SCH ×2 (06:46→18:39)
[2019-05-19] MEDS: CARVEDILOL 12.5MG TABLET PO SCH (06:46)
[2019-05-19 07:14] LABS: BASOPHILS % 0.7 % (0.0-2.0); EOSINOPHILS % 2.8 % (0.0-5.0); HEMATOCRIT. 31.9 % (42.0-52.0); HEMOGLOBIN. 10.9 g/dL (14.0-18.0); LYMPHOCYTES % 18.9 % (20.0-50.0); MEAN CORPUSCULAR HEMOGLOBIN 30.7 pg (28.0-32.0); MEAN CORPUSCULAR VOLUME 90.1 fL (80.0-94.0); MEAN PLATELET VOLUME 8.4 fl (7.4-10.4); MONOCYTES % 10.2 % (2.0-8.0); NEUTROPHILS % 67.4 % (40.0-76.0); PLATELET 81 x1000/uL (130-400); RED BLOOD CELL COUNT 3.55 mill/uL (4.7-6.1); RED CELL DISTRIBUTION WIDTH 15.1 % (11.6-14.6)
[2019-05-19 07:17] LABS: CHLORIDE 96 mEq/L (98-107)
[2019-05-19] MEDS: BENZONATATE 100MG CAPSULE PO SCH ×2 (09:28→18:39)
[2019-05-19] MEDS: HYDRALAZINE HCL 100MG TABLET PO SCH ×3 (09:28→18:39)
[2019-05-19] MEDS: DILTIAZEM HCL 300MG CAPSULE SR 24HR PO SCH (09:28)
[2019-05-19] MEDS: METOCLOPRAMIDE HCL 10MG TABLET PO SCH ×2 (09:28→18:39)
[2019-05-19] MEDS: TACROLIMUS 0.5 MG CAPSULE PO SCH ×2 (09:28→18:38)
[2019-05-19] MEDS: DOXAZOSIN MESYLATE 4MG TABLET PO SCH (09:28)
[2019-05-19] MEDS ORDERED: NEBIVOLOL HCL 5 MG TABLET PO SCH (10:30)
[2019-05-19] MEDS ORDERED: NIFEDIPINE XL 30MG TAB PO SCH (10:30)
[2019-05-19] MEDS: LORAZEPAM 0.5MG TABLET PO PRN (15:53)
[2019-05-19] MEDS ORDERED: LOSARTAN POTASSIUM 100 MG TABLET PO SCH (16:00)
[2019-05-19] MEDS ORDERED: LOSARTAN POTASSIUM 50 MG TABLET PO SCH ×2 (16:00)
[2019-05-19] MEDS: ISOSORBIDE DINITRATE 30MG TABLET PO SCH ×2 (18:39→20:32)
[2019-05-19] MEDS: CLONIDINE 0.3MG TABLET PO SCH (20:31)
[2019-05-20 00:05] VITALS: BP 107/48
[2019-05-20 04:00] VITALS: BP 155/80
[2019-05-20] MEDS: LORAZEPAM 0.5MG TABLET PO PRN (04:17)
[2019-05-20] MEDS: ISOSORBIDE DINITRATE 30MG TABLET PO SCH (05:33)
[2019-05-20] MEDS: CLONIDINE 0.3MG TABLET PO SCH (05:34)
[2019-05-20] MEDS: FUROSEMIDE 40MG/4ML VIAL IVP SCH (06:20)
[2019-05-20 07:32] LABS: BASOPHILS % 0.6 % (0.0-2.0); EOSINOPHILS % 3.2 % (0.0-5.0); HEMATOCRIT. 25.5 % (42.0-52.0); HEMOGLOBIN. 8.7 g/dL (14.0-18.0); LYMPHOCYTES % 19.6 % (20.0-50.0); MEAN CORPUSCULAR HEMOGLOBIN 30.6 pg (28.0-32.0); MEAN CORPUSCULAR VOLUME 90.1 fL (80.0-94.0); MEAN PLATELET VOLUME 8.3 fl (7.4-10.4); MONOCYTES % 12.8 % (2.0-8.0); NEUTROPHILS % 63.8 % (40.0-76.0); PLATELET 62 x1000/uL (130-400); RED BLOOD CELL COUNT 2.83 mill/uL (4.7-6.1)
[2019-05-20 07:53] LABS: PHOSPHORUS 5.6 mg/dL (2.5-4.9)
[2019-05-20 08:00] VITALS: BP 145/77
[2019-05-20] MEDS: BENZONATATE 100MG CAPSULE PO SCH (08:56)
[2019-05-20] MEDS: TACROLIMUS 0.5 MG CAPSULE PO SCH (08:56)
[2019-05-20] MEDS ORDERED: NEBIVOLOL HCL 5 MG TABLET PO SCH (09:00)
[2019-05-20] MEDS: METOCLOPRAMIDE HCL 10MG TABLET PO SCH (09:02)
[2019-05-20 12:00] VITALS: BP 138/76
[2019-05-20] MEDS ORDERED: ISOS30TA11 PO (12:42)
[2019-05-20] MEDS ORDERED: NIFE-33 PO (12:42)
[2019-05-20] MEDS ORDERED: NEBI5TAB3 PO (12:42)
[2019-05-20] MEDS ORDERED: CLON0.3T PO (12:42)
[2019-05-20] MEDS ORDERED: LOSA100T3 PO (12:42)
[2019-05-20 14:34] VITALS: BP 130/76
[2019-05-20] MEDS ORDERED: HEPARIN SODIUM 1,000 UNIT/1ML VIAL IV SCH (16:30)
== END 2019-05-20 18:24 | disposition home or self-care (01) | DRG 291 ==
LOC: ER 22:34 → 7WST 05-18 01:32 → EDBEDREQDT 05-18 01:34 → EDBEDREQ 05-18 01:34 → EDBEDREQTM 05-18 01:34 → ENRESERV 05-18 07:05
PROVIDERS: ADMIT Family Medicine Adult Medicine; ATTEND Family Medicine Adult Medicine
PROC: 5A1D70Z Performance of Urinary Filtration, Intermittent, Less than 6 Hours Per Day (ICD-10-PCS; principal; 2019-05-18)
PROC: 5A1D70Z Performance of Urinary Filtration, Intermittent, Less than 6 Hours Per Day (ICD-10-PCS; 2019-05-19)
DX: I13.2 Hypertensive heart and chronic kidney disease with heart failure and with stage 5 chronic kidney disease, or end stage renal disease (principal); I50.33 Acute on chronic diastolic (congestive) heart failure; N18.6 End stage renal disease; E46 Unspecified protein-calorie malnutrition; E87.1 Hypo-osmolality and hyponatremia; I16.1 Hypertensive emergency; Z94.4 Liver transplant status; D64.9 Anemia, unspecified; E66.01 Morbid (severe) obesity due to excess calories; E78.5 Hyperlipidemia, unspecified; F17.210 Nicotine dependence, cigarettes, uncomplicated; F41.9 Anxiety disorder, unspecified; K74.60 Unspecified cirrhosis of liver; Z79.01 Long term (current) use of anticoagulants; Z79.899 Other long term (current) drug therapy; Z99.2 Dependence on renal dialysis; Z82.49 Family history of ischemic heart disease and other diseases of the circulatory system; Z91.14 Patient's other noncompliance with medication regimen; Z68.34 Body mass index [BMI] 34.0-34.9, adult
CPT/HCPCS: 36415; 71045; 80048; 80053; 83735; 83880; 84100; 84484; 85025; 93005; 94640; 99285; J0360; J1644; J1940; J2270; J2405; J3490; J7507; J7611; J8597; Q0163

== ENCOUNTER 2019-05-22 03:56 | Inpatient (IN) | payer MEDICARE, OTHER ==
[2019-05-22] VITALS (10 sets, daily range): BP systolic 163–206; BP diastolic 82–115
[~2019-05-22] VITALS: Ht 175.3 cm; Wt 112.5 kg
[~2019-05-22 03:56] MED LIST changes: -APIX2.5T MT; -CARV12.545 PO; -CARV6.2548 MT; +CLON0.3T PO; -DILT300C52 MT; +ISOS30TA11 PO; +LOSA100T3 PO; +NEBI5TAB3 PO; +NIFE-33 PO
[2019-05-22] MEDS ORDERED: FUROSEMIDE 40MG/4ML VIAL IV ONE (04:00)
[2019-05-22 04:38] LABS: BASOPHILS % 0.5 % (0.0-2.0); EOSINOPHILS % 2.4 % (0.0-5.0); HEMATOCRIT. 29.3 % (42.0-52.0); LYMPHOCYTES % 15.4 % (20.0-50.0); MEAN CORPUSCULAR HEMOGLOBIN 30.4 pg (28.0-32.0); MEAN CORPUSCULAR VOLUME 88.7 fL (80.0-94.0); MEAN PLATELET VOLUME 7.9 fl (7.4-10.4); MONOCYTES % 9.3 % (2.0-8.0); NEUTROPHILS % 72.4 % (40.0-76.0); PLATELET 83 x1000/uL (130-400); RED CELL DISTRIBUTION WIDTH 15.8 % (11.6-14.6)
[2019-05-22 04:43] LABS: CHLORIDE 92 mEq/L (98-107)
[2019-05-22 04:44] LABS: PARTIAL THROMBOPLASTIN TIME 30.6 sec (23.4-31.0); PROTHROMBIN TIME 10.4 sec (9.6-11.0)
[2019-05-22] MEDS ORDERED: CALCIUM GLUCONATE 100MG/ML 10ML VIAL IV ONE (05:30)
[2019-05-22 07:59] LABS: CLARITY URINE CLEAR (CLEAR); COLOR URINE YELLOW (YELLOW); KETONES URINE NEGATIVE (NEGATIVE); LEUKOCYTE ESTERASE URINE NEGATIVE (NEGATIVE); NITRITE URINE NEGATIVE (NEGATIVE); OCCULT BLOOD URINE NEGATIVE (NEGATIVE); PROTEIN URINE 3+ (NEGATIVE); SPECIFIC GRAVITY URINE 1.009 (1.005-1.030); UROBILINOGEN URINE 0.2 E.U./dL (0.2-1.0)
[2019-05-22] MEDS ORDERED: NITROGLYCERIN 0.4MG TABLET SL SL PRN (09:00)
[2019-05-22] MEDS ORDERED: TRAMADOL 50MG TABLET PO PRN (09:00)
[2019-05-22] MEDS ORDERED: GUAIFENESIN 200MG/10ML SUGAR FREE UDC PO PRN (09:00)
[2019-05-22] MEDS ORDERED: ACETAMINOPHEN 325MG TABLET PO PRN (09:00)
[2019-05-22] MEDS ORDERED: CLONIDINE 0.1MG TABLET PO PRN (09:00)
[2019-05-22] MEDS ORDERED: MAGNESIUM/ALUMINUM HYDROXIDE/SIMETHICONE 30ML UDC PO PRN (09:00)
[2019-05-22] MEDS ORDERED: IPRATROPIUM/ALBUTEROL 0.5-3(2.5)MG/3ML NEB NEB PRN (09:00)
[2019-05-22] MEDS ORDERED: ONDANSETRON HCL 4MG/2ML INJ IV PRN (09:00)
[2019-05-22] MEDS ORDERED: DOCUSATE SODIUM 100MG CAPSULE PO PRN (09:00)
[2019-05-22] MEDS: NIFEDIPINE XL 60MG TAB PO SCH ×2 (09:00→16:36)
[2019-05-22] MEDS: FAMOTIDINE 20MG TABLET PO SCH (10:14)
[2019-05-22] MEDS: MINOXIDIL 2.5MG TABLET PO SCH ×2 (10:14→18:03)
[2019-05-22] MEDS: TACROLIMUS 0.5 MG CAPSULE PO SCH ×2 (10:14→21:11)
[2019-05-22] MEDS: ASPIRIN 325MG EC TABLET PO SCH (10:18)
[2019-05-22] MEDS: SEVELAMER CARBONATE 800 MG TABLET PO SCH ×3 (10:18→18:02)
[2019-05-22] MEDS: APIXABAN 2.5 MG TABLET PO SCH (18:03)
[2019-05-22 18:44] LABS: CREATINE KINASE MB FRACTION 1.7 ng/mL (0.5-3.6)
[2019-05-22] MEDS ORDERED: ZOLPIDEM TARTRATE 5MG TABLET PO PRN (21:00)
[2019-05-22] MEDS: CLONIDINE 0.1MG TABLET PO PRN (21:13)
[2019-05-23] VITALS (14 sets, daily range): BP systolic 143–187; BP diastolic 68–91
[2019-05-23 00:37] LABS: CREATINE KINASE 28 IU/L (39-308)
[2019-05-23 00:38] LABS: CREATINE KINASE MB FRACTION 1.3 ng/mL (0.5-3.6)
[2019-05-23] MEDS: APIXABAN 2.5 MG TABLET PO SCH ×2 (05:53→18:08)
[2019-05-23] MEDS: MINOXIDIL 2.5MG TABLET PO SCH ×2 (05:53→18:08)
[2019-05-23] MEDS: CLONIDINE 0.1MG TABLET PO PRN ×2 (05:53→20:01)
[2019-05-23] MEDS: ASPIRIN 325MG EC TABLET PO SCH (09:01)
[2019-05-23] MEDS: FOLIC ACID/VITAMIN B COMP W-C TABLET PO SCH (09:01)
[2019-05-23] MEDS: TACROLIMUS 0.5 MG CAPSULE PO SCH ×2 (09:01→20:00)
[2019-05-23] MEDS: SEVELAMER CARBONATE 800 MG TABLET PO SCH ×3 (09:01→18:08)
[2019-05-23] MEDS: NIFEDIPINE XL 60MG TAB PO SCH (09:01)
[2019-05-23] MEDS: FAMOTIDINE 20MG TABLET PO SCH (09:01)
[2019-05-23] MEDS: LORAZEPAM 0.5MG TABLET PO PRN (15:40)
[2019-05-24] VITALS: BP 152/88
[2019-05-24] MEDS: LORAZEPAM 0.5MG TABLET PO PRN (00:26)
[2019-05-24 02:00] VITALS: BP 136/73
[2019-05-24 04:00] VITALS: BP 154/75
[2019-05-24] MEDS: APIXABAN 2.5 MG TABLET PO SCH (05:10)
[2019-05-24] MEDS: MINOXIDIL 2.5MG TABLET PO SCH (05:10)
[2019-05-24 06:00] VITALS: BP 157/83
[2019-05-24 06:02] LABS: HEMATOCRIT. 26.7 % (42.0-52.0); HEMOGLOBIN. 9.1 g/dL (14.0-18.0); MEAN CORPUSCULAR HEMOGLOBIN 30.3 pg (28.0-32.0); MEAN CORPUSCULAR VOLUME 88.8 fL (80.0-94.0); MEAN PLATELET VOLUME 8.4 fl (7.4-10.4); PLATELET 93 x1000/uL (130-400); RED BLOOD CELL COUNT 3.01 mill/uL (4.7-6.1); RED CELL DISTRIBUTION WIDTH 15.3 % (11.6-14.6)
[2019-05-24 06:11] LABS: CHLORIDE 98 mEq/L (98-107)
[2019-05-24 06:17] LABS: PHOSPHORUS 5.2 mg/dL (2.5-4.9)
[2019-05-24] MEDS: CLONIDINE 0.1MG TABLET PO PRN (06:37)
[2019-05-24 08:00] VITALS: BP 143/79
[2019-05-24] MEDS: NIFEDIPINE XL 60MG TAB PO SCH (09:00)
[2019-05-24 09:30] VITALS: BP 148/77
[2019-05-24] MEDS: TACROLIMUS 0.5 MG CAPSULE PO SCH (12:22)
[2019-05-24] MEDS: FAMOTIDINE 20MG TABLET PO SCH (12:22)
[2019-05-24] MEDS: ASPIRIN 325MG EC TABLET PO SCH (12:22)
[2019-05-24] MEDS: SEVELAMER CARBONATE 800 MG TABLET PO SCH (12:22)
[2019-05-24] MEDS: FOLIC ACID/VITAMIN B COMP W-C TABLET PO SCH (12:22)
[2019-05-24 16:59] LABS: PLATELET ESTIMATE DECREASED
== END 2019-05-24 17:46 | disposition left against medical advice (07) | DRG 291 ==
LOC: ER 03:56 → 5EST 05:35 → ENRESERV 08:15 → SUPCPDRO 08:51
PROVIDERS: ADMIT Internal Medicine; ATTEND Internal Medicine
PROC: 5A1D70Z Performance of Urinary Filtration, Intermittent, Less than 6 Hours Per Day (ICD-10-PCS; principal; 2019-05-22)
PROC: 5A1D70Z Performance of Urinary Filtration, Intermittent, Less than 6 Hours Per Day (ICD-10-PCS; 2019-05-23)
DX: I13.2 Hypertensive heart and chronic kidney disease with heart failure and with stage 5 chronic kidney disease, or end stage renal disease (principal); I50.33 Acute on chronic diastolic (congestive) heart failure; J96.00 Acute respiratory failure, unspecified whether with hypoxia or hypercapnia; N18.6 End stage renal disease; E44.0 Moderate protein-calorie malnutrition; Z94.4 Liver transplant status; E87.1 Hypo-osmolality and hyponatremia; J44.1 Chronic obstructive pulmonary disease with (acute) exacerbation; I43 Cardiomyopathy in diseases classified elsewhere; E87.5 Hyperkalemia; E83.51 Hypocalcemia; E66.01 Morbid (severe) obesity due to excess calories; D63.8 Anemia in other chronic diseases classified elsewhere; D69.6 Thrombocytopenia, unspecified; K74.60 Unspecified cirrhosis of liver; K70.9 Alcoholic liver disease, unspecified; Z86.718 Personal history of other venous thrombosis and embolism; Z87.891 Personal history of nicotine dependence; Z91.11 Patient's noncompliance with dietary regimen; Z91.19 Patient's noncompliance with other medical treatment and regimen; Z99.2 Dependence on renal dialysis; Z79.01 Long term (current) use of anticoagulants
CPT/HCPCS: 36415; 71045; 80048; 80053; 81003; 82140; 82550; 82553; 82962; 83036; 83605; 83735; 83880; 84100; 84484; 85025; 87804; 93005; 93970; 99291; J0610; J1940; J7507; J7620

== ENCOUNTER 2019-06-13 02:05 | Inpatient (IN) | payer MEDICARE, OTHER ==
[~2019-06-13] VITALS: Ht 180.3 cm; Wt 95.3 kg
[2019-06-13] MEDS ORDERED: NITROGLYCERIN OINT 1GM/INCH UDPKT TD ONE (02:45)
[2019-06-13] MEDS ORDERED: FUROSEMIDE 40MG/4ML VIAL IV ONE (02:45)
[2019-06-13 03:03] LABS: BASOPHILS % 0.8 % (0.0-2.0); EOSINOPHILS % 3.9 % (0.0-5.0); HEMATOCRIT. 28.1 % (42.0-52.0); HEMOGLOBIN. 9.8 g/dL (14.0-18.0); LYMPHOCYTES % 29.3 % (20.0-50.0); MEAN CORPUSCULAR HEMOGLOBIN 30.3 pg (28.0-32.0); MEAN CORPUSCULAR VOLUME 87.2 fL (80.0-94.0); MEAN PLATELET VOLUME 7.8 fl (7.4-10.4); MONOCYTES % 9.5 % (2.0-8.0); NEUTROPHILS % 56.5 % (40.0-76.0); PLATELET 83 x1000/uL (130-400); RED BLOOD CELL COUNT 3.23 mill/uL (4.7-6.1); RED CELL DISTRIBUTION WIDTH 16.8 % (11.6-14.6)
[2019-06-13 03:07] LABS: CHLORIDE 94 mEq/L (98-107)
[2019-06-13 03:10] LABS: PARTIAL THROMBOPLASTIN TIME 27.3 sec (23.4-31.0); PROTHROMBIN TIME 10.2 sec (9.6-11.0)
[2019-06-13 03:13] LABS: ETHANOL BLOOD < 10 mg/dL
[2019-06-13] MEDS ORDERED: CLONIDINE 0.2MG TABLET PO ONE (04:30)
[2019-06-13] MEDS ORDERED: GUAIFENESIN 200MG/10ML SUGAR FREE UDC PO PRN (07:45)
[2019-06-13] MEDS ORDERED: ONDANSETRON HCL 4MG/2ML INJ IV PRN (07:45)
[2019-06-13] MEDS ORDERED: HYDROCODONE/ACETAMINOPHEN 5/325MG TABLET PO PRN (07:45)
[2019-06-13] MEDS ORDERED: NA PHOS,M-B/NA PHOS,DI-BA ENEMA 118ML PR PRN (07:45)
[2019-06-13] MEDS ORDERED: IPRATROPIUM/ALBUTEROL 0.5-3(2.5)MG/3ML NEB NEB PRN (07:45)
[2019-06-13] MEDS ORDERED: ENOXAPARIN 40MG/0.4ML SYR SUBCUT SCH (07:45)
[2019-06-13] MEDS ORDERED: MORPHINE SULFATE 2 MG/ML CPJ (NOT FOR IM USE) IV PRN (07:45)
[2019-06-13] MEDS ORDERED: DOCUSATE SODIUM 100MG CAPSULE PO PRN (07:45)
[2019-06-13] MEDS ORDERED: MAGNESIUM/ALUMINUM HYDROXIDE/SIMETHICONE 30ML UDC PO PRN (07:45)
[2019-06-13] MEDS: CLONIDINE 0.1MG TABLET PO PRN ×2 (08:36→18:18)
[2019-06-13] MEDS: ASPIRIN 81MG EC TABLET PO SCH (08:37)
[2019-06-13] MEDS ORDERED: HYDRALAZINE HCL 100MG TABLET PO ONE (08:45)
[2019-06-13 15:00] LABS: CREATINE KINASE 19 IU/L (39-308)
[2019-06-13 15:01] LABS: CREATINE KINASE MB FRACTION < 1.0 ng/mL (0.5-3.6)
[2019-06-13] MEDS: LORAZEPAM 0.5MG TABLET PO PRN (16:48)
[2019-06-13] MEDS: AMLODIPINE 10MG TABLET PO SCH (19:09)
[2019-06-13] MEDS: HYDRALAZINE HCL 50MG TABLET PO SCH (20:27)
[2019-06-13] MEDS: LISINOPRIL 10MG TABLET PO SCH (20:27)
[2019-06-13] MEDS ORDERED: HEPARIN SODIUM 1,000 UNIT/1ML VIAL IV NR (22:17)
[2019-06-13 23:21] VITALS: BP 241/117
[2019-06-14] MEDS ORDERED: AZITHROMYCIN 250 MG in DEXT 5% WATER 250 ML IV SCH ×2
[2019-06-14 00:46] LABS: CREATINE KINASE 25 IU/L (39-308); CREATINE KINASE MB FRACTION < 1.0 ng/mL (0.5-3.6)
[2019-06-14] MEDS: CLONIDINE 0.1MG TABLET PO PRN ×2 (00:51→20:36)
[2019-06-14] MEDS: IPRATROPIUM/ALBUTEROL 0.5-3(2.5)MG/3ML NEB HHN SCH ×7 (01:00→21:17)
[2019-06-14] MEDS ORDERED: CLONIDINE 0.3MG TABLET PO PRN (03:45)
[2019-06-14 04:00] VITALS: BP 184/87
[2019-06-14 06:33] LABS: BASOPHILS % 0.7 % (0.0-2.0); EOSINOPHILS % 3.1 % (0.0-5.0); HEMATOCRIT. 27.2 % (42.0-52.0); HEMOGLOBIN. 9.5 g/dL (14.0-18.0); LYMPHOCYTES % 14.4 % (20.0-50.0); MEAN CORPUSCULAR HEMOGLOBIN 30.4 pg (28.0-32.0); MEAN CORPUSCULAR VOLUME 87.1 fL (80.0-94.0); MEAN PLATELET VOLUME 7.8 fl (7.4-10.4); NEUTROPHILS % 73.8 % (40.0-76.0); PLATELET 87 x1000/uL (130-400); RED BLOOD CELL COUNT 3.13 mill/uL (4.7-6.1); RED CELL DISTRIBUTION WIDTH 16.8 % (11.6-14.6)
[2019-06-14 06:52] LABS: CHLORIDE 99 mEq/L (98-107)
[2019-06-14 07:03] LABS: CREATINE KINASE MB FRACTION < 1.0 ng/mL (0.5-3.6); LDL CHOLESTEROL 59 mg/dL (5-100)
[2019-06-14 07:04] LABS: CREATINE KINASE 21 IU/L (39-308); HDL CHOLESTEROL 63 mg/dL (40-59); T4 FREE 0.84 ng/dL (0.76-1.46)
[2019-06-14 08:00] VITALS: BP 214/99
[2019-06-14] MEDS: AMLODIPINE 10MG TABLET PO SCH (08:10)
[2019-06-14] MEDS: HYDRALAZINE HCL 50MG TABLET PO SCH (08:11)
[2019-06-14] MEDS: LISINOPRIL 10MG TABLET PO SCH ×2 (08:11→20:37)
[2019-06-14] MEDS: LORAZEPAM 0.5MG TABLET PO PRN ×3 (08:11→20:36)
[2019-06-14] MEDS: ASPIRIN 81MG EC TABLET PO SCH (08:11)
[2019-06-14] MEDS: DILTIAZEM HCL 180MG CAPSULE CD 24HR PO SCH (10:32)
[2019-06-14 12:00] VITALS: BP 167/89
[2019-06-14] MEDS: HYDRALAZINE HCL 100MG TABLET PO SCH ×2 (13:08→21:23)
[2019-06-14] MEDS: DIPHENHYDRAMINE 50MG/ML VIAL IV PRN (15:18)
[2019-06-14 16:00] VITALS: BP 152/75
[2019-06-14] MEDS: NICOTINE 14MG PATCH TD SCH (17:19)
[2019-06-14 20:00] VITALS: BP 170/80
[2019-06-15] VITALS: BP 179/99
[2019-06-15] MEDS: DIPHENHYDRAMINE 50MG/ML VIAL IV PRN ×3 (00:22→09:42)
[2019-06-15] MEDS ORDERED: AZITHROMYCIN 250 MG in DEXT 5% WATER 250 ML IV SCH (01:00)
[2019-06-15] MEDS: IPRATROPIUM/ALBUTEROL 0.5-3(2.5)MG/3ML NEB HHN SCH ×5 (01:09→16:37)
[2019-06-15] MEDS: ACETAMINOPHEN 325MG TABLET PO PRN ×2 (02:45→09:42)
[2019-06-15 04:00] VITALS: BP 177/86
[2019-06-15] MEDS: HYDRALAZINE HCL 100MG TABLET PO SCH ×2 (06:19→15:00)
[2019-06-15] MEDS: CLONIDINE 0.1MG TABLET PO PRN ×2 (06:19→13:06)
[2019-06-15 08:00] VITALS: BP 188/88
[2019-06-15] MEDS ORDERED: HEPARIN SODIUM 1,000 UNIT/1ML VIAL IV ONE (08:45)
[2019-06-15] MEDS: DILTIAZEM HCL 180MG CAPSULE CD 24HR PO SCH (09:41)
[2019-06-15] MEDS: LISINOPRIL 10MG TABLET PO SCH (09:41)
[2019-06-15] MEDS: ASPIRIN 81MG EC TABLET PO SCH (09:41)
[2019-06-15] MEDS: NICOTINE 14MG PATCH TD SCH (09:49)
[2019-06-15] MEDS ORDERED: HEPARIN SODIUM 1,000 UNIT/1ML VIAL IV NR (10:00)
[2019-06-15 12:00] VITALS: BP 195/91
[2019-06-15] MEDS ORDERED: DOXAZOSIN MESYLATE 4MG TABLET PO NR (14:00)
[2019-06-15] MEDS: LORAZEPAM 0.5MG TABLET PO PRN (15:18)
[2019-06-15 16:00] VITALS: BP 120/70
[2019-06-15] MEDS ORDERED: CLONIDINE 0.1MG TABLET PO SCH (16:15)
[2019-06-15] MEDS ORDERED: DOXAZOSIN MESYLATE 4MG TABLET PO SCH (21:00)
== END 2019-06-15 19:03 | disposition left against medical advice (07) | DRG 189 ==
LOC: ER 02:05 → 7WST 04:18 → EDBEDREQTM 04:23 → EDBEDREQ 04:23 → ENRESERV 19:20
PROVIDERS: ADMIT Internal Medicine; ATTEND Internal Medicine
PROC: 5A1D70Z Performance of Urinary Filtration, Intermittent, Less than 6 Hours Per Day (ICD-10-PCS; 2019-06-13)
PROC: 5A1D70Z Performance of Urinary Filtration, Intermittent, Less than 6 Hours Per Day (ICD-10-PCS; principal; 2019-06-15)
DX: J96.00 Acute respiratory failure, unspecified whether with hypoxia or hypercapnia (principal); N18.6 End stage renal disease; I50.33 Acute on chronic diastolic (congestive) heart failure; I13.2 Hypertensive heart and chronic kidney disease with heart failure and with stage 5 chronic kidney disease, or end stage renal disease; E87.1 Hypo-osmolality and hyponatremia; Z94.4 Liver transplant status; E46 Unspecified protein-calorie malnutrition; D61.818 Other pancytopenia; E11.22 Type 2 diabetes mellitus with diabetic chronic kidney disease; E66.01 Morbid (severe) obesity due to excess calories; E78.5 Hyperlipidemia, unspecified; F32.9 Major depressive disorder, single episode, unspecified; J98.01 Acute bronchospasm; K70.30 Alcoholic cirrhosis of liver without ascites; I25.10 Atherosclerotic heart disease of native coronary artery without angina pectoris; J44.9 Chronic obstructive pulmonary disease, unspecified; Z86.718 Personal history of other venous thrombosis and embolism; Z99.2 Dependence on renal dialysis; Z91.19 Patient's noncompliance with other medical treatment and regimen; Z87.891 Personal history of nicotine dependence; Z79.899 Other long term (current) drug therapy; Z68.29 Body mass index [BMI] 29.0-29.9, adult
CPT/HCPCS: 36415; 71045; 80048; 80053; 80061; 80320; 82550; 82553; 83036; 83880; 84439; 84443; 84484; 85025; 85379; 93005; 93306; 93970; 94640; 99285; J0456; J1200; J1644; J1940; J7060; G0480

== ENCOUNTER 2019-07-04 07:45 | Inpatient (IN) | payer MEDICARE, OTHER ==
[2019-07-04] VITALS (28 sets, daily range): BP systolic 117–245; BP diastolic 57–151
[~2019-07-04] VITALS: Ht 172.7 cm; Wt 107.5 kg
[2019-07-04] MEDS ORDERED: HYDRALAZINE 20MG/ML VIAL IV ONE ×2 (08:00→09:15)
[2019-07-04] MEDS ORDERED: ASPIRIN 81MG TABLET PO ONE (08:00)
[2019-07-04] MEDS ORDERED: NITROGLYCERIN OINT 1GM/INCH UDPKT TD ONE (08:00)
[2019-07-04 08:14] LABS: BASOPHILS % 0.9 % (0.0-2.0); EOSINOPHILS % 3.4 % (0.0-5.0); HEMATOCRIT. 33.2 % (42.0-52.0); HEMOGLOBIN. 11.7 g/dL (14.0-18.0); LYMPHOCYTES % 20.5 % (20.0-50.0); MEAN CORPUSCULAR HEMOGLOBIN 30.8 pg (28.0-32.0); MEAN CORPUSCULAR VOLUME 87.9 fL (80.0-94.0); MEAN PLATELET VOLUME 7.2 fl (7.4-10.4); MONOCYTES % 9.2 % (2.0-8.0); PLATELET 143 x1000/uL (130-400); RED BLOOD CELL COUNT 3.78 mill/uL (4.7-6.1); RED CELL DISTRIBUTION WIDTH 20.8 % (11.6-14.6)
[2019-07-04 08:24] LABS: CHLORIDE 88 mEq/L (98-107)
[2019-07-04 09:11] LABS: BG BASE EXCESS 2.4 mmol/L (-2.0-2.0); BG BILEVEL POS AIRWAY PRESSURE 15/5; BG CARBOXYHEMOGLOBIN 2.6 % (0.5-1.5); BG DEOXYHEMOGLOBIN 0.6 % (0.0-5.0); BG FRACTION INSPIRED OXYGEN 100; BG HCO3 ACT 27.3 mmol/L (22.0-26.0); BG METHEMOGLOBIN 0.3 % (0.0-1.5); BG OXYGEN SATURATION 99.4 % (92.0-98.5); BG OXYHEMOGLOBIN 96.5 % (94.0-97.0); BG PCO2 43.7 mmHg (35.0-45.0); BG PH 7.414 (7.350-7.450); BG PO2 392.3 mmHg (75.0-100.0); BG SAMPLE SITE RIGHT BRACHIAL; BG TOTAL HEMOGLOBIN 10.8 g/dL (12.0-18.0); BG VENT MODE MASK - BIPAP
[2019-07-04] MEDS ORDERED: IPRATROPIUM/ALBUTEROL 0.5-3(2.5)MG/3ML NEB HHN PRN (14:15)
[2019-07-04] MEDS ORDERED: LABETALOL 5MG/ML SYR 20 MG/4 ML SYRINGE IV NR (14:15)
[2019-07-04] MEDS ORDERED: LOSARTAN POTASSIUM 100 MG TABLET PO NR (14:30)
[2019-07-04] MEDS: ACETAMINOPHEN 325MG TABLET PO PRN ×2 (14:45→22:55)
[2019-07-04] MEDS ORDERED: NICARDIPINE 50 MG in SODIUM CHLORIDE 0.9% 230 ML IV PRN (17:00)
[2019-07-04] MEDS ORDERED: HYDRALAZINE 20MG/ML VIAL IV PRN (17:03)
[2019-07-04] MEDS ORDERED: NICARDIPINE 40MG/200ML PREMIX 200 ML IV PRN (17:07)
[2019-07-04] MEDS: ONDANSETRON HCL 4MG/2ML INJ IV PRN (19:52)
[2019-07-04] MEDS ORDERED: PROMETHAZINE/DEXTROMETHORPHAN 6.25-15MG/5ML BOTTLE 120ML PO PRN (22:00)
[2019-07-04] MEDS: NICARDIPINE 50 MG in SODIUM CHLORIDE 0.9% 230 ML IV PRN (22:21)
[2019-07-05] VITALS (68 sets, daily range): BP systolic 107–194; BP diastolic 53–100
[2019-07-05] MEDS: IPRATROPIUM/ALBUTEROL 0.5-3(2.5)MG/3ML NEB HHN SCH ×7 (00:02→23:46)
[2019-07-05] MEDS: ONDANSETRON HCL 4MG/2ML INJ IV PRN (03:02)
[2019-07-05] MEDS: NICARDIPINE 50 MG in SODIUM CHLORIDE 0.9% 230 ML IV PRN (03:03)
[2019-07-05 05:32] LABS: BASOPHILS % 0.3 % (0.0-2.0); EOSINOPHILS % 1.1 % (0.0-5.0); HEMATOCRIT. 30.6 % (42.0-52.0); HEMOGLOBIN. 10.7 g/dL (14.0-18.0); MEAN CORPUSCULAR VOLUME 88.5 fL (80.0-94.0); MEAN PLATELET VOLUME 7.2 fl (7.4-10.4); NEUTROPHILS % 77.6 % (40.0-76.0); PLATELET 124 x1000/uL (130-400); RED BLOOD CELL COUNT 3.46 mill/uL (4.7-6.1)
[2019-07-05] MEDS ORDERED: FLUT9.9S BOTHNSTRLS (06:33)
[2019-07-05] MEDS ORDERED: NIFE-33 PO (06:33)
[2019-07-05] MEDS ORDERED: DILT240C91 MT (06:33)
[2019-07-05] MEDS ORDERED: VITA1CAP16 MT (06:33)
[2019-07-05] MEDS: NICARDIPINE 100 MG in SODIUM CHLORIDE 0.9% 60 ML IV PRN ×3 (09:00→20:00)
[2019-07-05 09:10] LABS: BG BASE EXCESS 1.9 mmol/L (-2.0-2.0); BG CARBOXYHEMOGLOBIN 1.2 % (0.5-1.5); BG DEOXYHEMOGLOBIN 4.3 % (0.0-5.0); BG FRACTION INSPIRED OXYGEN 36; BG HCO3 ACT 26.8 mmol/L (22.0-26.0); BG OXYGEN SATURATION 95.6 % (92.0-98.5); BG OXYHEMOGLOBIN 94.5 % (94.0-97.0); BG PCO2 43.2 mmHg (35.0-45.0); BG PH 7.411 (7.350-7.450); BG PO2 80.9 mmHg (75.0-100.0); BG SAMPLE SITE RIGHT BRACHIAL; BG TOTAL HEMOGLOBIN 12.4 g/dL (12.0-18.0); BG VENT MODE NASAL CANNULA
[2019-07-05] MEDS ORDERED: DILTIAZEM HCL 120MG CAPSULE CD 24HR PO NR (10:00)
[2019-07-05] MEDS: TACROLIMUS 0.5 MG CAPSULE PO SCH ×2 (10:58→21:44)
[2019-07-05] MEDS: FLUTICASONE PROPIONATE 50MCG/SPRAY BOTTLE BOTHNSTRLS SCH (11:00)
[2019-07-05] MEDS: LOSARTAN POTASSIUM 100 MG TABLET PO SCH (11:00)
[2019-07-05] MEDS: NIFEDIPINE XL 30MG TAB PO SCH (11:03)
[2019-07-05] MEDS: POLYVINYL ALCOHOL OPHTH DROPS 15ML BOTHEYE PRN ×2 (13:00→17:00)
[2019-07-05] MEDS: ACETAMINOPHEN 325MG TABLET PO PRN (13:42)
[2019-07-05] MEDS: HYDRALAZINE HCL 100MG TABLET PO SCH ×2 (14:07→21:44)
[2019-07-05] MEDS: DOXAZOSIN MESYLATE 4MG TABLET PO SCH (21:43)
[2019-07-05] MEDS: CLONIDINE 0.2MG TABLET PO SCH (21:44)
[2019-07-05] MEDS ORDERED: LORAZEPAM 0.5MG TABLET PO PRN (23:30)
[2019-07-06] VITALS (58 sets, daily range): BP systolic 89–173; BP diastolic 50–94
[2019-07-06] MEDS: IPRATROPIUM/ALBUTEROL 0.5-3(2.5)MG/3ML NEB HHN SCH ×5 (04:15→20:07)
[2019-07-06] MEDS: HYDRALAZINE HCL 100MG TABLET PO SCH ×3 (05:03→22:24)
[2019-07-06 05:44] LABS: HEMATOCRIT. 24.9 % (42.0-52.0); HEMOGLOBIN. 8.5 g/dL (14.0-18.0); MEAN CORPUSCULAR HEMOGLOBIN 30.7 pg (28.0-32.0); MEAN CORPUSCULAR VOLUME 89.3 fL (80.0-94.0); MEAN PLATELET VOLUME 7.2 fl (7.4-10.4); PLATELET 92 x1000/uL (130-400); RED BLOOD CELL COUNT 2.78 mill/uL (4.7-6.1); RED CELL DISTRIBUTION WIDTH 21.6 % (11.6-14.6)
[2019-07-06] MEDS: NICARDIPINE 100 MG in SODIUM CHLORIDE 0.9% 60 ML IV PRN (07:45)
[2019-07-06 08:52] LABS: PLATELET ESTIMATE SLIGHTLY DECREASED
[2019-07-06] MEDS: LOSARTAN POTASSIUM 100 MG TABLET PO SCH (09:29)
[2019-07-06] MEDS: CLONIDINE 0.2MG TABLET PO SCH (09:29)
[2019-07-06] MEDS: TACROLIMUS 0.5 MG CAPSULE PO SCH ×2 (09:29→21:00)
[2019-07-06] MEDS: NIFEDIPINE XL 30MG TAB PO SCH (09:29)
[2019-07-06] MEDS: NEBIVOLOL HCL 5 MG TABLET PO SCH (09:29)
[2019-07-06] MEDS: FLUTICASONE PROPIONATE 50MCG/SPRAY BOTTLE BOTHNSTRLS SCH (09:30)
[2019-07-06] MEDS ORDERED: HEPARIN SODIUM 1,000 UNIT/1ML VIAL IV ONE (09:30)
[2019-07-06] MEDS: DILTIAZEM HCL 120MG CAPSULE CD 24HR PO SCH (15:45)
[2019-07-06] MEDS: DOXAZOSIN MESYLATE 4MG TABLET PO SCH (21:00)
[2019-07-06] MEDS ORDERED: HYDROXYZINE HCL 50 MG MT SCH (21:00)
[2019-07-06] MEDS: LORAZEPAM 1MG TABLET PO PRN (22:25)
[2019-07-06] MEDS: CLONIDINE 0.3MG TABLET PO SCH (22:26)
[2019-07-06] MEDS: ACETAMINOPHEN 325MG TABLET PO PRN (23:28)
[2019-07-07] VITALS (22 sets, daily range): BP systolic 106–168; BP diastolic 50–94
[2019-07-07] MEDS: IPRATROPIUM/ALBUTEROL 0.5-3(2.5)MG/3ML NEB HHN SCH ×6 (00:09→20:12)
[2019-07-07] MEDS: ACETAMINOPHEN 325MG TABLET PO PRN ×3 (01:54→02:18)
[2019-07-07 06:02] LABS: BASOPHILS % 0.7 % (0.0-2.0); EOSINOPHILS % 2.4 % (0.0-5.0); HEMATOCRIT. 22.8 % (42.0-52.0); HEMOGLOBIN. 7.9 g/dL (14.0-18.0); LYMPHOCYTES % 22.5 % (20.0-50.0); MEAN CORPUSCULAR HEMOGLOBIN 31.4 pg (28.0-32.0); MEAN CORPUSCULAR VOLUME 90.3 fL (80.0-94.0); MEAN PLATELET VOLUME 7.2 fl (7.4-10.4); MONOCYTES % 14.1 % (2.0-8.0); NEUTROPHILS % 60.3 % (40.0-76.0); PLATELET 83 x1000/uL (130-400); RED BLOOD CELL COUNT 2.52 mill/uL (4.7-6.1); RED CELL DISTRIBUTION WIDTH 21.5 % (11.6-14.6)
[2019-07-07] MEDS: HYDRALAZINE HCL 100MG TABLET PO SCH ×3 (06:27→21:00)
[2019-07-07] MEDS: CLONIDINE 0.3MG TABLET PO SCH ×3 (06:28→21:00)
[2019-07-07] MEDS: NIFEDIPINE XL 30MG TAB PO SCH (09:25)
[2019-07-07] MEDS: DILTIAZEM HCL 120MG CAPSULE CD 24HR PO SCH (09:25)
[2019-07-07] MEDS: TACROLIMUS 0.5 MG CAPSULE PO SCH ×2 (09:25→20:57)
[2019-07-07] MEDS: LOSARTAN POTASSIUM 100 MG TABLET PO SCH (09:25)
[2019-07-07] MEDS: NEBIVOLOL HCL 5 MG TABLET PO SCH (09:25)
[2019-07-07] MEDS: LORAZEPAM 1MG TABLET PO PRN ×2 (09:25→20:58)
[2019-07-07] MEDS: FLUTICASONE PROPIONATE 50MCG/SPRAY BOTTLE BOTHNSTRLS SCH (09:26)
[2019-07-07] MEDS: FERROUS SULFATE 325MG TABLET PO SCH (18:39)
[2019-07-07] MEDS: CALCIUM ACETATE 667 MG TABLET PO SCH (18:39)
[2019-07-07] MEDS: DOXAZOSIN MESYLATE 4MG TABLET PO SCH (20:58)
[2019-07-08] VITALS (11 sets, daily range): BP systolic 142–197; BP diastolic 79–108
[2019-07-08] MEDS: IPRATROPIUM/ALBUTEROL 0.5-3(2.5)MG/3ML NEB HHN SCH ×4 (00:09→20:26)
[2019-07-08] MEDS: CLONIDINE 0.3MG TABLET PO SCH ×3 (05:30→21:16)
[2019-07-08] MEDS: HYDRALAZINE HCL 100MG TABLET PO SCH ×3 (05:30→21:16)
[2019-07-08 07:19] LABS: BASOPHILS % 0.6 % (0.0-2.0); EOSINOPHILS % 2.7 % (0.0-5.0); HEMATOCRIT. 21.1 % (42.0-52.0); HEMOGLOBIN. 7.3 g/dL (14.0-18.0); LYMPHOCYTES % 16.8 % (20.0-50.0); MEAN CORPUSCULAR HEMOGLOBIN 31.4 pg (28.0-32.0); MEAN CORPUSCULAR VOLUME 90.1 fL (80.0-94.0); MEAN PLATELET VOLUME 7.4 fl (7.4-10.4); MONOCYTES % 10.6 % (2.0-8.0); NEUTROPHILS % 69.3 % (40.0-76.0); PLATELET 82 x1000/uL (130-400); RED BLOOD CELL COUNT 2.34 mill/uL (4.7-6.1); RED CELL DISTRIBUTION WIDTH 21.3 % (11.6-14.6)
[2019-07-08] MEDS: CALCIUM ACETATE 667 MG TABLET PO SCH ×3 (08:00→17:09)
[2019-07-08] MEDS: LOSARTAN POTASSIUM 100 MG TABLET PO SCH (09:12)
[2019-07-08] MEDS: NIFEDIPINE XL 30MG TAB PO SCH (09:12)
[2019-07-08] MEDS: TACROLIMUS 0.5 MG CAPSULE PO SCH ×2 (09:12→21:17)
[2019-07-08] MEDS: FERROUS SULFATE 325MG TABLET PO SCH ×2 (09:12→17:09)
[2019-07-08] MEDS: NEBIVOLOL HCL 5 MG TABLET PO SCH (09:12)
[2019-07-08] MEDS: DILTIAZEM HCL 120MG CAPSULE CD 24HR PO SCH (09:13)
[2019-07-08] MEDS: HYDRALAZINE 20MG/ML VIAL IV PRN ×2 (09:22→15:20)
[2019-07-08] MEDS ORDERED: HEPARIN SODIUM 1,000 UNIT/1ML VIAL IV NR (12:30)
[2019-07-08] MEDS: LORAZEPAM 1MG TABLET PO PRN (13:48)
[2019-07-08] MEDS: MINOXIDIL 2.5MG TABLET PO SCH (15:19)
[2019-07-08] MEDS ORDERED: EPOETIN ALFA 10000UNITS/ML VIAL SUBCUT SCH (21:00)
[2019-07-08] MEDS: DOXAZOSIN MESYLATE 4MG TABLET PO SCH (21:16)
[2019-07-09] VITALS (13 sets, daily range): BP systolic 135–159; BP diastolic 61–118
[2019-07-09] MEDS: IPRATROPIUM/ALBUTEROL 0.5-3(2.5)MG/3ML NEB HHN SCH ×6 (01:06→20:48)
[2019-07-09] MEDS: CLONIDINE 0.3MG TABLET PO SCH ×2 (05:37→14:07)
[2019-07-09] MEDS: HYDRALAZINE HCL 100MG TABLET PO SCH ×2 (05:37→14:07)
[2019-07-09 07:14] LABS: BASOPHILS % 0.7 % (0.0-2.0); EOSINOPHILS % 2.6 % (0.0-5.0); HEMOGLOBIN. 7.1 g/dL (14.0-18.0); LYMPHOCYTES % 21.3 % (20.0-50.0); MEAN CORPUSCULAR HEMOGLOBIN 30.8 pg (28.0-32.0); MEAN CORPUSCULAR VOLUME 90.4 fL (80.0-94.0); MEAN PLATELET VOLUME 7.6 fl (7.4-10.4); MONOCYTES % 10.8 % (2.0-8.0); NEUTROPHILS % 64.6 % (40.0-76.0); PLATELET 87 x1000/uL (130-400); RED BLOOD CELL COUNT 2.31 mill/uL (4.7-6.1); RED CELL DISTRIBUTION WIDTH 20.7 % (11.6-14.6)
[2019-07-09 07:36] LABS: HEMATOCRIT. 20.9 % (42.0-52.0)
[2019-07-09] MEDS: CALCIUM ACETATE 667 MG TABLET PO SCH ×3 (10:43→17:35)
[2019-07-09] MEDS: NEBIVOLOL HCL 5 MG TABLET PO SCH (10:44)
[2019-07-09] MEDS: DILTIAZEM HCL 120MG CAPSULE CD 24HR PO SCH (10:44)
[2019-07-09] MEDS: LOSARTAN POTASSIUM 100 MG TABLET PO SCH (10:45)
[2019-07-09] MEDS: NIFEDIPINE XL 30MG TAB PO SCH (10:45)
[2019-07-09] MEDS: FERROUS SULFATE 325MG TABLET PO SCH ×2 (10:45→17:34)
[2019-07-09] MEDS: MINOXIDIL 2.5MG TABLET PO SCH (10:45)
[2019-07-09] MEDS: TACROLIMUS 0.5 MG CAPSULE PO SCH (10:45)
[2019-07-09] MEDS ORDERED: MINO2.5T19 PO (15:23)
== END 2019-07-10 00:18 | disposition home or self-care (01) | DRG 291 ==
LOC: ER 07:55 → MICUSO 12:14 → EDBEDREQ 12:17 → EDBEDREQSVC 17:19 → ENRESERV 17:33 → 5EST 07-08 00:55
PROVIDERS: ADMIT Internal Medicine; ATTEND Internal Medicine
PROC: 5A09357 Assistance with Respiratory Ventilation, Less than 24 Consecutive Hours, Continuous Positive Airway Pressure (ICD-10-PCS; 2019-07-04)
PROC: 5A1D70Z Performance of Urinary Filtration, Intermittent, Less than 6 Hours Per Day (ICD-10-PCS; 2019-07-06)
PROC: 5A09357 Assistance with Respiratory Ventilation, Less than 24 Consecutive Hours, Continuous Positive Airway Pressure (ICD-10-PCS; 2019-07-06)
PROC: 5A1D70Z Performance of Urinary Filtration, Intermittent, Less than 6 Hours Per Day (ICD-10-PCS; 2019-07-07)
PROC: 5A1D70Z Performance of Urinary Filtration, Intermittent, Less than 6 Hours Per Day (ICD-10-PCS; 2019-07-08)
PROC: 30233N1 Transfusion of Nonautologous Red Blood Cells into Peripheral Vein, Percutaneous Approach (ICD-10-PCS; principal; 2019-07-09)
PROC: 5A1D70Z Performance of Urinary Filtration, Intermittent, Less than 6 Hours Per Day (ICD-10-PCS; 2019-07-09)
DX: I13.2 Hypertensive heart and chronic kidney disease with heart failure and with stage 5 chronic kidney disease, or end stage renal disease (principal); I50.31 Acute diastolic (congestive) heart failure; J96.00 Acute respiratory failure, unspecified whether with hypoxia or hypercapnia; N18.6 End stage renal disease; Z94.4 Liver transplant status; E87.1 Hypo-osmolality and hyponatremia; I16.0 Hypertensive urgency; E66.9 Obesity, unspecified; J44.9 Chronic obstructive pulmonary disease, unspecified; J31.0 Chronic rhinitis; F17.210 Nicotine dependence, cigarettes, uncomplicated; K74.60 Unspecified cirrhosis of liver; E87.8 Other disorders of electrolyte and fluid balance, not elsewhere classified; E11.22 Type 2 diabetes mellitus with diabetic chronic kidney disease; D63.8 Anemia in other chronic diseases classified elsewhere; Z86.718 Personal history of other venous thrombosis and embolism; Z99.2 Dependence on renal dialysis; Z91.15 Patient's noncompliance with renal dialysis; Z91.19 Patient's noncompliance with other medical treatment and regimen; Z79.899 Other long term (current) drug therapy; Z71.6 Tobacco abuse counseling; Z71.3 Dietary counseling and surveillance; Z68.36 Body mass index [BMI] 36.0-36.9, adult
CPT/HCPCS: 36415; 36600; 71045; 80048; 80053; 82375; 82805; 83880; 84100; 84145; 84484; 85025; 85044; 86850; 86900; 86920; 93005; 94640; 94660; 99291; J0360; J0885; J1644; J2405; J3490; J7050; J7507; P9016

== ENCOUNTER 2019-07-19 23:26 | Inpatient (IN) | payer MEDICARE, OTHER ==
[~2019-07-19] VITALS: Ht 177.8 cm; Wt 117.9 kg
[~2019-07-19 23:26] MED LIST changes: +DILT240C91 MT; +FLUT9.9S BOTHNSTRLS; -ISOS30TA11 PO; +MINO2.5T19 PO; +VITA1CAP16 MT
[2019-07-19] MEDS ORDERED: NITROGLYCERIN OINT 1GM/INCH UDPKT TD ONE (23:30)
[2019-07-19] MEDS ORDERED: ONDANSETRON HCL 4MG/2ML INJ IV STA (23:30)
[2019-07-19 23:56] LABS: BG BASE EXCESS 2.6 mmol/L (-2.0-2.0); BG CARBOXYHEMOGLOBIN 3.3 % (0.5-1.5); BG DEOXYHEMOGLOBIN 0.7 % (0.0-5.0); BG FRACTION INSPIRED OXYGEN 100; BG HCO3 ACT 27.4 mmol/L (22.0-26.0); BG METHEMOGLOBIN 0.1 % (0.0-1.5); BG OXYGEN SATURATION 99.3 % (92.0-98.5); BG OXYHEMOGLOBIN 95.9 % (94.0-97.0); BG PCO2 43.1 mmHg (35.0-45.0); BG PH 7.421 (7.350-7.450); BG PO2 458.5 mmHg (75.0-100.0); BG SAMPLE SITE RIGHT RADIAL; BG TOTAL HEMOGLOBIN 10.4 g/dL (12.0-18.0); BG VENT MODE MASK - NRB
[2019-07-20 00:36] LABS: BASOPHILS % 0.3 % (0.0-2.0); EOSINOPHILS % 0.2 % (0.0-5.0); HEMATOCRIT. 29.2 % (42.0-52.0); HEMOGLOBIN. 10.2 g/dL (14.0-18.0); LYMPHOCYTES % 12.8 % (20.0-50.0); MEAN CORPUSCULAR HEMOGLOBIN 31.4 pg (28.0-32.0); MEAN CORPUSCULAR VOLUME 89.6 fL (80.0-94.0); MEAN PLATELET VOLUME 7.7 fl (7.4-10.4); MONOCYTES % 9.5 % (2.0-8.0); NEUTROPHILS % 77.2 % (40.0-76.0); PLATELET 217 x1000/uL (130-400); RED BLOOD CELL COUNT 3.26 mill/uL (4.7-6.1); RED CELL DISTRIBUTION WIDTH 19.2 % (11.6-14.6)
[2019-07-20 00:39] LABS: CHLORIDE 85 mEq/L (98-107)
[2019-07-20] MEDS ORDERED: ACETAMINOPHEN 325MG TABLET PO ONE (02:30)
[2019-07-20] MEDS ORDERED: IPRATROPIUM/ALBUTEROL 0.5-3(2.5)MG/3ML NEB NEB PRN (07:00)
[2019-07-20] MEDS ORDERED: DIPHENHYDRAMINE 50MG/ML VIAL IV PRN (07:00)
[2019-07-20] MEDS ORDERED: ZOLPIDEM TARTRATE 5MG TABLET PO PRN (07:00)
[2019-07-20] MEDS ORDERED: CLONIDINE 0.1MG TABLET PO PRN (07:00)
[2019-07-20] MEDS ORDERED: NITROGLYCERIN 0.4MG TABLET SL SL PRN (07:00)
[2019-07-20] MEDS ORDERED: ACETAMINOPHEN 325MG TABLET PO PRN (07:00)
[2019-07-20] MEDS ORDERED: MAGNESIUM/ALUMINUM HYDROXIDE/SIMETHICONE 30ML UDC PO PRN (07:00)
[2019-07-20] MEDS ORDERED: ONDANSETRON HCL 4MG/2ML INJ IV PRN (07:00)
[2019-07-20] MEDS ORDERED: GUAIFENESIN 200MG/10ML SUGAR FREE UDC PO PRN (07:00)
[2019-07-20] MEDS ORDERED: TRAMADOL 50MG TABLET PO PRN (07:00)
[2019-07-20] MEDS ORDERED: NIFEDIPINE XL 60MG TAB PO NR (07:45)
[2019-07-20 08:30] VITALS: BP 186/89
[2019-07-20] MEDS ORDERED: FAMOTIDINE 20MG TABLET PO SCH (09:00)
[2019-07-20] MEDS: FAMOTIDINE 20MG TABLET PO SCH (09:16)
[2019-07-20] MEDS: ENOXAPARIN 40MG/0.4ML SYR SUBCUT SCH (09:18)
[2019-07-20] MEDS: DOCUSATE SODIUM 100MG CAPSULE PO PRN (09:18)
[2019-07-20] MEDS: MINOXIDIL 2.5MG TABLET PO SCH ×2 (09:19→21:39)
[2019-07-20] MEDS: ASPIRIN 325MG EC TABLET PO SCH (09:19)
[2019-07-20] MEDS: ACETAMINOPHEN 325MG TABLET PO PRN ×3 (10:42→22:03)
[2019-07-20 10:47] VITALS: BP 166/74
[2019-07-20 12:00] VITALS: BP 140/79
[2019-07-20] MEDS: SEVELAMER CARBONATE 800 MG TABLET PO SCH ×2 (15:27→18:35)
[2019-07-20 16:00] VITALS: BP 152/80
[2019-07-20 16:58] LABS: CREATINE KINASE MB FRACTION 1.1 ng/mL (0.5-3.6)
[2019-07-20 17:04] LABS: CREATINE KINASE 70 IU/L (39-308)
[2019-07-20 20:00] VITALS: BP 152/59
[2019-07-20 20:44] LABS: HEMATOCRIT. 30.5 % (42.0-52.0); HEMOGLOBIN. 10.5 g/dL (14.0-18.0); MEAN CORPUSCULAR HEMOGLOBIN 31.5 pg (28.0-32.0); MEAN CORPUSCULAR VOLUME 91.1 fL (80.0-94.0); MEAN PLATELET VOLUME 7.5 fl (7.4-10.4); PLATELET 197 x1000/uL (130-400); RED BLOOD CELL COUNT 3.35 mill/uL (4.7-6.1); RED CELL DISTRIBUTION WIDTH 19.5 % (11.6-14.6)
[2019-07-20] MEDS ORDERED: DIPHENHYDRAMINE 50MG/ML VIAL IV NR (21:00)
[2019-07-20] MEDS ORDERED: CEFTAZIDIME PENTAHYDRATE 1 G in DEXTROSE 5% WATER 50 ML IV SCH (21:00)
[2019-07-20] MEDS ORDERED: VANCOMYCIN 2,000 MG in DEXT 5% WATER 500 ML IV NR (22:00)
[2019-07-20 23:03] LABS: PLATELET ESTIMATE NORMAL
[2019-07-20 23:34] LABS: CREATINE KINASE 38 IU/L (39-308)
[2019-07-20 23:35] LABS: CREATINE KINASE MB FRACTION 1.1 ng/mL (0.5-3.6)
[2019-07-21] VITALS: BP 140/55
[2019-07-21 04:00] VITALS: BP 135/56
[2019-07-21 04:46] LABS: BASOPHILS % 0.5 % (0.0-2.0); EOSINOPHILS % 0.5 % (0.0-5.0); HEMATOCRIT. 28.2 % (42.0-52.0); HEMOGLOBIN. 9.8 g/dL (14.0-18.0); LYMPHOCYTES % 12.7 % (20.0-50.0); MEAN CORPUSCULAR HEMOGLOBIN 31.7 pg (28.0-32.0); MEAN CORPUSCULAR VOLUME 91.2 fL (80.0-94.0); MEAN PLATELET VOLUME 7.7 fl (7.4-10.4); MONOCYTES % 11.4 % (2.0-8.0); NEUTROPHILS % 74.9 % (40.0-76.0); PLATELET 149 x1000/uL (130-400); RED CELL DISTRIBUTION WIDTH 19.8 % (11.6-14.6)
[2019-07-21] MEDS: ACETAMINOPHEN 325MG TABLET PO PRN (06:15)
[2019-07-21 08:00] VITALS: BP 176/80
[2019-07-21] MEDS: DOCUSATE SODIUM 100MG CAPSULE PO PRN (08:45)
[2019-07-21] MEDS: MINOXIDIL 2.5MG TABLET PO SCH (08:46)
[2019-07-21] MEDS: SEVELAMER CARBONATE 800 MG TABLET PO SCH ×2 (08:46→13:10)
[2019-07-21] MEDS: ASPIRIN 325MG EC TABLET PO SCH (08:46)
[2019-07-21] MEDS: FAMOTIDINE 20MG TABLET PO SCH (08:46)
[2019-07-21] MEDS: ENOXAPARIN 40MG/0.4ML SYR SUBCUT SCH (08:47)
[2019-07-21] MEDS ORDERED: NIFEDIPINE XL 60MG TAB PO SCH (09:00)
[2019-07-21 12:00] VITALS: BP 163/71
[2019-07-21 16:00] VITALS: BP_SYST 167; BP_SYST 169; BP_DIAS 70; BP_DIAS 76
[2019-07-21 16:42] VITALS: BP 43/156
== END 2019-07-21 18:45 | disposition home or self-care (01) | DRG 189 ==
LOC: ER 23:26 → EDUNIT# 23:26 → 7WST 07-20 04:57 → EDBEDREQTM 07-20 05:00 → EDBEDREQDT 07-20 05:00 → EDBEDREQ 07-20 05:00 → SUPCPDRO 07-20 06:58 → ENRESERV 07-20 07:19
PROVIDERS: ADMIT Internal Medicine; ATTEND Internal Medicine
PROC: 5A1D70Z Performance of Urinary Filtration, Intermittent, Less than 6 Hours Per Day (ICD-10-PCS; principal; 2019-07-20)
DX: J96.00 Acute respiratory failure, unspecified whether with hypoxia or hypercapnia (principal); I50.33 Acute on chronic diastolic (congestive) heart failure; N18.6 End stage renal disease; I13.2 Hypertensive heart and chronic kidney disease with heart failure and with stage 5 chronic kidney disease, or end stage renal disease; E87.1 Hypo-osmolality and hyponatremia; Z94.4 Liver transplant status; E66.01 Morbid (severe) obesity due to excess calories; F17.210 Nicotine dependence, cigarettes, uncomplicated; F32.9 Major depressive disorder, single episode, unspecified; J44.9 Chronic obstructive pulmonary disease, unspecified; K70.30 Alcoholic cirrhosis of liver without ascites; Z91.11 Patient's noncompliance with dietary regimen; Z68.37 Body mass index [BMI] 37.0-37.9, adult; Z91.14 Patient's other noncompliance with medication regimen; Z91.15 Patient's noncompliance with renal dialysis; Z91.19 Patient's noncompliance with other medical treatment and regimen; Z99.2 Dependence on renal dialysis; Z79.899 Other long term (current) drug therapy
CPT/HCPCS: 36415; 36600; 71045; 80048; 80053; 82375; 82550; 82553; 82805; 83036; 83605; 83880; 84484; 85025; 87804; 93005; 93970; 99285; J0713; J1200; J1650; J2405; J3370; J7060